=== PATIENT | female | born 1985 | race Caucasian/White ===

== ENCOUNTER → 2016-06-17 | Outpatient (CLI) | payer OTHER ==
--- NOTE | 2016-06-17 14:47 | US ---
EXAMINATION: Ultrasound guided right paracentesis. HISTORY: Ascites. FINDINGS/TECHNIQUE: The procedure, risks, and benefits were discussed with the patient. Written informed consent was obt ained. The right lower quadrant was sterilely prepped and draped. 1% lidocaine was administered for local anesthesia. Using ultrasound guidance a 5 Turkish one-step needle was advanced. The catheter wa s left in place. 2.2 L of straw-colored fluid was collected. The patient tolerated the procedure wel l. IMPRESSION: Successful US guided paracentesis.
== END | disposition home or self-care (01) ==
LOC: MW.US 12:53
PROVIDERS: ATTEND Internal Medicine Gastroenterology
DX: I89.8 Other specified noninfective disorders of lymphatic vessels and lymph nodes (principal); R18.8 Other ascites; R63.3 Feeding difficulties; D18.1 Lymphangioma, any site
CPT/HCPCS: 49083

== ENCOUNTER → 2016-06-17 | Outpatient (CLI) | payer OTHER ==
[2016-06-17 13:35] LABS: CHLORIDE,CL 106 mmol/L (98-110); SODIUM,NA 140 mmol/L (136-146)
== END ==
LOC: MW.LAB 12:28
PROVIDERS: ATTEND Internal Medicine
DX: R63.3 Feeding difficulties (principal); I89.8 Other specified noninfective disorders of lymphatic vessels and lymph nodes; D18.1 Lymphangioma, any site
CPT/HCPCS: 36415; 80053; 83735; 84100; 85025

== ENCOUNTER → 2016-06-25 | Outpatient (CLI) | payer OTHER ==
--- NOTE | 2016-06-25 13:27 | US ---
EXAMINATION: Ultrasound guided right paracentesis. HISTORY: Ascites. FINDINGS/TECHNIQUE: The procedure, risks, and benefits were discussed with the patient. Written informed consent was obt ained. The right lower quadrant was sterilely prepped and draped. 1% lidocaine was administered for local anesthesia. Using ultrasound guidance a 5 Estonian one-step needle was advanced. The catheter wa s left in place. 2.5 L of straw-colored fluid was collected. The patient tolerated the procedure wel l. IMPRESSION: Successful US guided paracentesis.
== END ==
LOC: MW.US 10:57
PROVIDERS: ATTEND Internal Medicine Gastroenterology
DX: I89.8 Other specified noninfective disorders of lymphatic vessels and lymph nodes (principal)
CPT/HCPCS: 49083

== ENCOUNTER → 2016-06-25 | Outpatient (CLI) | payer OTHER ==
[2016-06-25 11:57] LABS: CHLORIDE,CL 106 mmol/L (98-110); SODIUM,NA 137 mmol/L (136-146)
== END | disposition home or self-care (01) ==
LOC: MW.LAB 10:36
PROVIDERS: ATTEND Internal Medicine
DX: R63.3 Feeding difficulties (principal); I89.8 Other specified noninfective disorders of lymphatic vessels and lymph nodes
CPT/HCPCS: 36415; 49083; 80053; 82306; 82374; 82525; 83735; 83785; 84100; 84238; 84255; 84446; 84590; 84630; 85025

== ENCOUNTER → 2016-07-02 | Outpatient (CLI) | payer OTHER ==
--- NOTE | 2016-07-02 10:29 | US ---
EXAMINATION: Ultrasound guided right paracentesis. HISTORY: Ascites. FINDINGS/TECHNIQUE: The procedure, risks, and benefits were discussed with the patient. Written informed consent was obt ained. The right lower quadrant was sterilely prepped and draped. 1% lidocaine was administered for local anesthesia. Using ultrasound guidance a 5 Azeri one-step needle was advanced. The catheter wa s left in place. 1.7 L of straw-colored fluid was collected. The patient tolerated the procedure wel l. IMPRESSION: Successful US guided paracentesis.
== END | disposition home or self-care (01) ==
LOC: MW.US 09:39
PROVIDERS: ATTEND Internal Medicine Gastroenterology
DX: R18.8 Other ascites (principal); I89.8 Other specified noninfective disorders of lymphatic vessels and lymph nodes
CPT/HCPCS: 49083

== ENCOUNTER → 2016-07-04 | Outpatient (CLI) | payer OTHER ==
--- NOTE | 2016-07-04 15:19 | CR ---
EXAMINATION: Two-view chest (PA and Lateral views). HISTORY: Dyspnea. FINDINGS: The trachea is midline. The cardiomediastinal silhouette is within normal limits. No pulmonary infil trates, effusions or pneumothorax. There is a right-sided central line with tip in good position. Mi ld right costophrenic phrenic scarring. Opaque densities project over the upper abdomen secondary to previous lymphangiogram. Osseous structures appear unremarkable. IMPRESSION: No acute cardiopulmonary process.
== END | disposition home or self-care (01) ==
LOC: MW.CHFP 14:39
PROVIDERS: ATTEND Physician Assistant
DX: R06.00 Dyspnea, unspecified (principal)
CPT/HCPCS: 71020; 71020-26

== ENCOUNTER → 2016-07-08 | Outpatient (CLI) | payer OTHER ==
--- NOTE | 2016-07-09 20:34 | US ---
EXAMINATION: Ultrasound guided right paracentesis. HISTORY: Ascites. FINDINGS/TECHNIQUE: The procedure, risks, and benefits were discussed with the patient. Written informed consent was obt ained. The right lower quadrant was sterilely prepped and draped. 1% lidocaine was administered for local anesthesia. Using ultrasound guidance a 5 Latvian one-step needle was advanced. The catheter wa s left in place. 2.25 L straw-colored fluid was collected. The patient tolerated the procedure well. There is a trace residual ascites. IMPRESSION: Successful US guided paracentesis.
== END | disposition home or self-care (01) ==
LOC: MW.US 10:59
PROVIDERS: ATTEND Internal Medicine Gastroenterology
DX: R18.8 Other ascites (principal); D18.1 Lymphangioma, any site; I89.8 Other specified noninfective disorders of lymphatic vessels and lymph nodes
CPT/HCPCS: 36415; 49083; 80053; 83735; 84100; 84134; 85025; 86140

== ENCOUNTER → 2016-07-08 | Outpatient (CLI) | payer OTHER ==
[2016-07-08 11:50] LABS: CHLORIDE,CL 108 mmol/L (98-110); SODIUM,NA 138 mmol/L (136-146)
== END | disposition home or self-care (01) ==
LOC: MW.LAB 10:46
PROVIDERS: ATTEND Internal Medicine
DX: D18.1 Lymphangioma, any site (principal); R63.3 Feeding difficulties; I89.8 Other specified noninfective disorders of lymphatic vessels and lymph nodes
CPT/HCPCS: 36415; 80053; 83735; 84100; 84134; 85025; 86140

== ENCOUNTER → 2016-07-10 | Outpatient (CLI) | payer OTHER | LOC: MW.CHFP 09:22 | PROVIDERS: ATTEND Emergency Medicine | DX: R10.9 Unspecified abdominal pain (principal) | CPT/HCPCS: 81001; 87086 ==

== ENCOUNTER → 2016-07-15 | Outpatient (CLI) | payer OTHER ==
--- NOTE | 2016-07-15 14:26 | US ---
EXAMINATION: Ultrasound guided right paracentesis. HISTORY: Ascites. FINDINGS/TECHNIQUE: The procedure, risks, and benefits were discussed with the patient. Written informed consent was obt ained. The right lower quadrant was sterilely prepped and draped. 1% lidocaine was administered for local anesthesia. Using ultrasound guidance a 5 Tamazight one-step needle was advanced. The catheter wa s left in place. 3.05 L straw-colored fluid was collected. The patient tolerated the procedure well. There is a trace residual ascites. IMPRESSION: Successful US guided paracentesis.
== END | disposition home or self-care (01) ==
LOC: MW.US 13:12
PROVIDERS: ATTEND Internal Medicine Gastroenterology
DX: I89.8 Other specified noninfective disorders of lymphatic vessels and lymph nodes (principal)
CPT/HCPCS: 49083; 84157; 87070; 87205; 89050

== ENCOUNTER → 2016-07-22 | Outpatient (CLI) | payer OTHER ==
[2016-07-22 13:23] LABS: CHLORIDE,CL 107 mmol/L (98-110); SODIUM,NA 138 mmol/L (136-146)
--- NOTE | 2016-07-22 15:00 | US ---
EXAMINATION: Ultrasound guided left paracentesis. HISTORY: Ascites. FINDINGS/TECHNIQUE: The procedure, risks, and benefits were discussed with the patient. Written informed consent was obt ained. The left lower quadrant was sterilely prepped and draped. 1% lidocaine was administered for l ocal anesthesia. Using ultrasound guidance a 5 Chilean one-step needle was advanced. The catheter was left in place. 3.0 L straw-colored fluid was collected. The patient tolerated the procedure well. T here is a trace residual ascites. IMPRESSION: Successful US guided paracentesis.
== END ==
LOC: MW.LAB 12:44
PROVIDERS: ATTEND Internal Medicine
DX: R18.8 Other ascites (principal); I89.8 Other specified noninfective disorders of lymphatic vessels and lymph nodes
CPT/HCPCS: 36415; 49083; 80053; 83735; 84100; 85025

== ENCOUNTER → 2016-07-22 | Outpatient (CLI) | payer OTHER | LOC: MW.US 13:01 | PROVIDERS: ATTEND Internal Medicine Gastroenterology | DX: I89.8 Other specified noninfective disorders of lymphatic vessels and lymph nodes (principal) | CPT/HCPCS: C1729 ==

== ENCOUNTER → 2016-07-30 | Outpatient (CLI) | payer OTHER ==
--- NOTE | 2016-07-30 14:25 | US ---
EXAMINATION: Ultrasound guided paracentesis. HISTORY: Ascites. FINDINGS/TECHNIQUE: The procedure, risks, and benefits were discussed with the patient. Written informed consent was obt ained. The right lower quadrant was sterilely prepped and draped. 1% lidocaine was administered for local anesthesia. Using ultrasound guidance a 5 Congolese one-step needle was advanced. The catheter wa s left in place. 2.6 L of straw-colored fluid was collected. The patient tolerated the procedure wel l. IMPRESSION: Successful US guided paracentesis.
== END | disposition home or self-care (01) ==
LOC: MW.US 13:06
PROVIDERS: ATTEND Internal Medicine Gastroenterology
DX: I89.8 Other specified noninfective disorders of lymphatic vessels and lymph nodes (principal)
CPT/HCPCS: 49083; C1729

== ENCOUNTER → 2016-08-02 | Outpatient (CLI) | payer OTHER ==
[2016-08-02 11:50] LABS: CHLORIDE,CL 108 mmol/L (98-110); SODIUM,NA 138 mmol/L (136-146)
== END | disposition home or self-care (01) ==
LOC: MW.LAB 11:06
PROVIDERS: ATTEND Internal Medicine
DX: R63.3 Feeding difficulties (principal); I89.8 Other specified noninfective disorders of lymphatic vessels and lymph nodes; D18.1 Lymphangioma, any site
CPT/HCPCS: 36415; 80053; 83735; 84100; 85025

== ENCOUNTER → 2016-08-05 | Outpatient (CLI) | payer OTHER | LOC: MW.US 13:11 | PROVIDERS: ATTEND Internal Medicine Gastroenterology | DX: I89.8 Other specified noninfective disorders of lymphatic vessels and lymph nodes (principal); R18.8 Other ascites ==

== ENCOUNTER → 2016-08-09 | Outpatient (CLI) | payer OTHER ==
--- NOTE | 2016-08-09 16:29 | US ---
EXAMINATION: Ultrasound guided paracentesis. HISTORY: Ascites. FINDINGS/TECHNIQUE: The procedure, risks, and benefits were discussed with the patient. Written informed consent was obt ained. The right lower quadrant was sterilely prepped and draped. 1% lidocaine was administered for local anesthesia. Using ultrasound guidance a 5 Ivorian one-step needle was advanced. The catheter wa s left in place. 2.5 L of straw-colored fluid was collected. The patient tolerated the procedure wel l. IMPRESSION: Successful US guided paracentesis.
== END ==
LOC: MW.US 15:03
PROVIDERS: ATTEND Internal Medicine Gastroenterology
DX: R18.8 Other ascites (principal); I89.8 Other specified noninfective disorders of lymphatic vessels and lymph nodes
CPT/HCPCS: 49083

== ENCOUNTER → 2016-08-19 | Outpatient (CLI) | payer OTHER ==
--- NOTE | 2016-08-19 14:34 | US ---
EXAMINATION: Ultrasound guided paracentesis. HISTORY: Ascites. FINDINGS/TECHNIQUE: The procedure, risks, and benefits were discussed with the patient. Written informed consent was obt ained. The right lower quadrant was sterilely prepped and draped. 1% lidocaine was administered for local anesthesia. Using ultrasound guidance a 5 Japanese one-step needle was advanced. The catheter wa s left in place. 2.3 L of tea-colored fluid was collected. The patient tolerated the procedure well. IMPRESSION: Successful US guided paracentesis.
== END ==
LOC: MW.US 13:07
PROVIDERS: ATTEND Internal Medicine Gastroenterology
DX: I89.8 Other specified noninfective disorders of lymphatic vessels and lymph nodes (principal); R06.00 Dyspnea, unspecified
CPT/HCPCS: 49083; C1729

== ENCOUNTER → 2016-08-19 | Outpatient (CLI) | payer OTHER ==
--- NOTE | 2016-08-19 14:34 | CR ---
EXAMINATION: Two-view chest (PA and Lateral views). HISTORY: Dyspnea. FINDINGS: The trachea is midline. The cardiomediastinal silhouette is within normal limits. No pulmonary infil trates, effusions or pneumothorax. There is a right-sided central line with tip in good position. Mi ld right costophrenic scarring. Opaque densities project over the upper abdomen secondary to previou s lymphangiogram. Osseous structures appear unremarkable. IMPRESSION: No acute cardiopulmonary process.
== END ==
LOC: MW.CHFP 13:09
PROVIDERS: ATTEND Emergency Medicine
DX: R06.00 Dyspnea, unspecified (principal)
CPT/HCPCS: 71020; 71020-26

== ENCOUNTER → 2016-08-23 | Outpatient (CLI) | payer OTHER ==
[~2016-08-23] MED LIST: Albuterol 0.083% 2.5 MG/3 ML Neb Soln NEB ONE; Albuterol 0.083% 2.5 MG/3 ML Neb Soln ONE
== END ==
LOC: MW.RT 13:41
PROVIDERS: ATTEND Emergency Medicine
DX: I89.8 Other specified noninfective disorders of lymphatic vessels and lymph nodes (principal)
CPT/HCPCS: 94060

== ENCOUNTER → 2016-08-27 | Outpatient (CLI) | payer OTHER ==
[2016-08-27 16:37] LABS: CHLORIDE,CL 110 mmol/L (98-110); SODIUM,NA 141 mmol/L (136-146)
== END | disposition home or self-care (01) ==
LOC: MW.LAB 15:55
PROVIDERS: ATTEND Internal Medicine
DX: R63.3 Feeding difficulties (principal); I89.8 Other specified noninfective disorders of lymphatic vessels and lymph nodes; D18.1 Lymphangioma, any site
CPT/HCPCS: 36415; 80053; 83735; 84100; 84478; 85025

== ENCOUNTER → 2016-08-28 | Outpatient (CLI) | payer OTHER | LOC: MW.US 11:01 | PROVIDERS: ATTEND Internal Medicine Gastroenterology | DX: I89.8 Other specified noninfective disorders of lymphatic vessels and lymph nodes (principal); Z53.9 Procedure and treatment not carried out, unspecified reason ==

== ENCOUNTER → 2016-09-02 | Outpatient (CLI) | payer OTHER | LOC: MW.US 13:09 | PROVIDERS: ATTEND Internal Medicine Gastroenterology | DX: I89.8 Other specified noninfective disorders of lymphatic vessels and lymph nodes (principal); Z53.9 Procedure and treatment not carried out, unspecified reason ==

== ENCOUNTER → 2016-09-06 | Outpatient (CLI) | payer OTHER ==
--- NOTE | 2016-09-06 13:49 | US ---
EXAMINATION: Ultrasound guided paracentesis. HISTORY: Ascites. FINDINGS/TECHNIQUE: The procedure, risks, and benefits were discussed with the patient. Written informed consent was obt ained. The right lower quadrant was sterilely prepped and draped. 1% lidocaine was administered for local anesthesia. Using ultrasound guidance a 5 Belarusian one-step needle was advanced. The catheter wa s left in place. 1.9 L of cloudy yellow fluid was collected. The patient tolerated the procedure wel l. IMPRESSION: Successful US guided paracentesis.
== END ==
LOC: MW.US 13:00
PROVIDERS: ATTEND Internal Medicine Gastroenterology
DX: R18.8 Other ascites (principal); I89.8 Other specified noninfective disorders of lymphatic vessels and lymph nodes
CPT/HCPCS: 49083

== ENCOUNTER 2017-06-11 17:16 | Observation (INO) | payer OTHER ==
[2017-06-11] MEDS ORDERED: Magnesium Sulfate/Water 2 GM in Premix Bag 1 BAG IV ONE (17:47)
[2017-06-11] MEDS ORDERED: Diltiazem 25 MG/5 ML SDV IVPUSH ONE (17:47)
[2017-06-11] MEDS ORDERED: Sodium Chloride 0.9% 1,000 ML IV ONE (17:47)
[2017-06-11] MEDS ORDERED: Sodium Chloride 0.9% 10 ML Syringe FLUSH PRN (19:20)
[2017-06-11] MEDS ORDERED: Sodium Chloride 0.9% 2.5 ML Syringe FLUSH PRN (19:20)
[2017-06-11] MEDS ORDERED: Ondansetron 4 MG/2 ML SDV IVPUSH PRN (19:20)
[2017-06-11] MEDS ORDERED: Diltiazem 25 MG/5 ML SDV IVPUSH PRN (19:26)
--- NOTE | 2017-06-11 20:10 | PCM.HP ---
H&P History of Present Illness - General Date of Service: 06/11/17 Admit Problem/Dx: Admission Diagnosis/Problem Admission Diagnosis/Problem Atrial fibrillation with rapid ventricular response - History of Present Illness Initial Comments - Free Text/Narative: This is a 31-year-old female who is presenting after being seen at the residency clinic here in [facility]. Patient is being admitted directly for new onset atrial fibrillation RVR. 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 Patient states that she woke up this morning feeling dizzy, having heart palpitations and feeling fatigued, patient thought that she was dehydrated as she has been urinating almost every hour overnight. Patient made appointment with her family physician and when seen it was determined that patient was having atrial fibrillation of new onset RVR. Patient had a chest x-ray, CBC, CMP, magnesium all of which appeared to be within normal limits. Magnesium was 1.5 and the patient did receive 2 g of mag. Onset of Symptoms: Reports: Today - Related Data Allergies/Adverse Reactions: Allergies Allergy/AdvReac Type Severity Reaction Status Date / Time Iodinated Contrast- Oral and Allergy Rash Verified 03/29/16 11:54 IV Dye [Iodinated Contrast Media - IV Dye] iron Allergy Anaphylactic Verified 03/29/16 11:54 Shock Home Medications: Home Meds Albuterol [Ventolin HFA] 1 - 2 puff IH Q4H PRN 06/11/17 [History] Amoxicillin 2,000 mg PO .BEFORE DENTAL APPT PRN 06/11/17 [History] Ascorbic Acid [Vitamin C] 500 mg PO DAILY 06/11/17 [History] Aspirin [Halfprin] 81 mg PO DAILY 06/11/17 [History] Bifidobacterium Infantis [Align] 4 mg PO DAILY 06/11/17 [History] ClonazePAM [KlonoPIN] 0.5 mg PO BID PRN 06/11/17 [History] Clotrimazole [Mycelex] 10 mg PO . 5 TIMES DAILY 06/11/17 [History] Cyanocobalamin (Vitamin B-12) [Vitamin B-12] 1,000 mg IM Q30D 06/11/17 [History] Cyproheptadine HCl 06/11/17 [History] Ergocalciferol (Vitamin D2) [Vitamin D2] 50,000 unit PO WEEKLY 06/11/17 [History ] Ferumoxytol [Feraheme] 510 mg IV ASDIRECTED 06/11/17 [History] Levomefolate Calcium [l-Methylfolate Calcium] 7.5 mg PO DAILY 06/11/17 [History] Levomefolate/Algal Oil [Deplin-Algal Oil 7.5 mg Cap] 1 cap PO DAILY 06/11/17 [ History] Lidocaine 5% 1 applic TOP ASDIRECTED PRN 06/11/17 [History] Loperamide [Imodium] 2 mg PO DAILY 06/11/17 [History] Melatonin 5 mg PO BEDTIME 06/11/17 [History] Metoprolol Succinate [Toprol XL] 12.5 mg PO DAILY 06/11/17 [History] Mirtazapine [Remeron] 30 mg PO BEDTIME 06/11/17 [History] Mycophenolate Mofetil [Cellcept] 500 mg PO BID 06/11/17 [History] Non-Formulary Medication [NF Drug] 1,600 ml IV DAILY@199906/11/17 [History] Omeprazole 40 mg PO DAILY 06/11/17 [History] Ondansetron [Zofran Odt] 8 mg PO TID PRN 06/11/17 [History] Promethazine [Phenergan] 10 - 15 ml PO Q4H PRN 06/11/17 [History] busPIRone [Buspar] 5 mg PO QAM 06/11/17 [History] busPIRone [Buspar] 10 mg PO BEDTIME 06/11/17 [History] clonazePAM [Klonopin] 1 mg PO BEDTIME 06/11/17 [History] predniSONE 4 mg PO DAILY 06/11/17 [History] valACYclovir HCl [Valacyclovir] 1,000 mg PO BID PRN 06/11/17 [History] Past Medical History HEENT History: Reports: Impaired Vision Other HEENT History: Wears contact lenses Cardiovascular History: Reports: None Respiratory History: Reports: Other (See Below) Other Respiratory History: Pleural effusion, Chylothorax Gastrointestinal History: Reports: Inflammatory Bowel Disease, Other (See Below) Other Gastrointestinal History: Chrohn's Disease Genitourinary History: Reports: None DRAWING TENDER History: Reports: None Musculoskeletal History: Reports: Other (See Below) Other Musculoskeletal History: Low back pain Neurological History: Reports: None Psychiatric History: Reports: Anxiety, Depression Endocrine/Metabolic History: Reports: None Hematologic History: Reports: None Immunologic History: Reports: None Oncologic (Cancer) History: Reports: None Dermatologic History: Reports: None - Infectious Disease History Infectious Disease History: Reports: Shingles - Past Surgical History HEENT Surgical History: Reports: None Cardiovascular Surgical History: Reports: None Respiratory Surgical History: Reports: Thoracentesis, Other (See Below) Female Surgical History: Reports: None Dermatological Surgical History: Reports: None Social & Family History - Family History Family Medical History: Noncontributory - Tobacco Use Smoking Status *Q: Never Smoker Second Hand Smoke Exposure: No - Caffeine Use Caffeine Use: Reports: None - Recreational Drug Use Recreational Drug Use: No H&P Review of Systems - Review of Systems: Review Of Systems: ROS reveals no pertinent complaints other than HPI. Exam - Exam Exam: See Below - Vital Signs Vital Signs: Last Vital Signs Temp 36.4 C 06/11/17 17:25 Pulse Resp 22 H 06/11/17 19:00 BP 109/77 06/11/17 19:00 Pulse Ox 96 06/11/17 19:00 Weight: 58.1 kg - Exam General: Alert, Oriented, Cooperative HEENT: Conjunctiva Clear Neck: Supple, Trachea Midline Lungs: Clear to Auscultation, Normal Respiratory Effort Cardiovascular: Irregular Rhythm, Tachycardia GI/Abdominal Exam: Normal Bowel Sounds Extremities: Normal Inspection, No Pedal Edema *Q Meaningful Use (ADM) - VTE *Q VTE Criteria *Q: - Stroke *Q Stroke Criteria *Q: - AMI *Q AMI Criteria *Q: - Problem List (1) Atrial fibrillation with RVR SNOMED Code(s): 893724489175469 ICD Code: I48.91 - UNSPECIFIED ATRIAL FIBRILLATION Status: Acute Current Visit: Yes Problem List Initiated/Reviewed/Updated: Yes Orders Last 24hrs: Active Orders 24 hr Category Date Time Status Patient Status [ADT] Routine ADT 06/11/17 19:20 Active Antiembolic Devices [RC] PER UNIT ROUTINE Care 06/11/17 19:23 Active Blood Glucose Check, Bedside [RC] PRN Care 06/11/17 19:24 Active Blood Glucose Check, Bedside [RC] Q4HR Care 06/11/17 19:32 Active Cardiac Monitoring [RC] CONTINUOUS Care 06/11/17 19:22 Active Height and Weight [RC] UPON Care 06/11/17 19:20 Active Intake and Output [RC] QSHIFT Care 06/11/17 19:22 Active Notify Provider Vital Signs [RC] ASDIRECTED Care 06/11/17 19:22 Active Oxygen Therapy [RC] PRN Care 06/11/17 19:20 Active Pulse Oximetry [RC] CONTINUOUS Care 06/11/17 19:22 Active Up With Assistance [RC] ASDIRECTED Care 06/11/17 19:20 Active VTE/DVT Education [RC] PER UNIT ROUTINE Care 06/11/17 19:20 Active Vital Signs [RC] Q4H Care 06/11/17 19:20 Active Regular Diet [DIET] Diet 06/11/17 Breakfast Active Echo 2D wo Cont [US] Routine Exams 06/11/17 19:33 Ordered CBC WITH AUTO DIFF [HEME] AM Lab 06/12/17 05:11 Ordered COMPREHENSIVE METABOLIC PN,CMP [CHEM] AM Lab 06/12/17 05:11 Ordered MAGNESIUM [CHEM] AM Lab 06/12/17 05:11 Ordered UA W/MICROSCOPIC [URIN] Routine Lab 06/11/17 19:44 Ordered Diltiazem Med 06/11/17 19:26 Active 20 mg IVPUSH Q3HR PRN Metoprolol Tartrate [Lopressor] Med 06/11/17 21:00 Active 25 mg PO Q12HR Ondansetron [Zofran] Med 06/11/17 19:20 Active 4 mg IVPUSH Q4H PRN Patient's Own Medication [Ptom] Med 06/11/17 20:00 Active 1 each IVPUSH DAILY@1999 Sodium Chloride 0.9% [Saline Flush] Med 06/11/17 19:20 Active 10 ml FLUSH ASDIRECTED PRN Sodium Chloride 0.9% [Saline Flush] Med 06/11/17 19:20 Active 2.5 ml FLUSH ASDIRECTED PRN Peripheral IV Insertion Adult [OM.PC] Routine Oth 06/11/17 19:20 Ordered Saline Lock Insert [OM.PC] Routine Oth 06/11/17 19:20 Ordered Sequential Compression Device [OM.PC] Per Unit Routine Oth 06/11/17 19:23 Ordered Resuscitation Status Routine Resus Stat 06/11/17 19:20 Ordered Medication Orders Diltiazem HCl (Diltiazem) 20 mg IVPUSH Q3HR PRN PRN Reason: Tachycardia Metoprolol Tartrate (Lopressor) 25 mg PO Q12HR DEREK Ondansetron HCl (Zofran) 4 mg IVPUSH Q4H PRN PRN Reason: Nausea Tpn Per Patient 1 each IVPUSH DAILY@1999 DEREK Sodium Chloride (Saline Flush) 10 ml FLUSH ASDIRECTED PRN PRN Reason: Keep Vein Open Sodium Chloride (Saline Flush) 2.5 ml FLUSH ASDIRECTED PRN PRN Reason: Keep Vein Open Assessment/Plan Comment:: This is a 31-year-old female with a significant past medical history presenting with new onset atrial fibrillation with RVR. Assessment/plan: 1. New onset atrial fibrillation with RVR -Patient may be dehydrated as such the patient is being given IV fluid bolus and we shall see if this helps control her heart rate below 110 bpm. Heart rate is not below 110 then we can give Cardizem 10 mg every 3 hours with a heart rate above 110. -Patient will also be getting Lopressor 25 mg every 12 hours for heart rate control. -Patient to get an echocardiogram to assess for possible cardiac abnormalities that may be attributed to atrial fibrillation -Patient is young and as this is new onset less than 48 hours with holding off on anticoagulation therapy despite the previous past medical history of vasculitis induced stroke. We will reconsider anticoagulated therapy Patient admitted under observation ICU.
[2017-06-11] MEDS: [UNRECOGNIZED DRUG - NUTRITION] IVPUSH SCH (21:00)
[2017-06-11] MEDS: Metoprolol Tartrate 25 MG Tab PO SCH (22:02)
[2017-06-11] MEDS ORDERED: ClonazePAM 0.5 MG Tab PO PRN (22:13)
[2017-06-11] MEDS ORDERED: Ondansetron 8 MG Tab.DIS PO PRN (22:13)
[2017-06-11] MEDS ORDERED: ERGOCALCIFEROL 50000 UNIT PO SCH (22:15)
[2017-06-11] MEDS ORDERED: FERUMOXYTOL 510 MG/17 ML IV SCH (22:15)
[2017-06-11] MEDS ORDERED: Cyanocobalamin (Vitamin B12) 1,000 MCG/ML SDV IM SCH (22:30)
[2017-06-11] MEDS ORDERED: ClonazePAM 1 MG Tab ONE (22:38)
[2017-06-11] MEDS ORDERED: Cyanocobalamin (Vitamin B12) 500 MCG Tab ONE (22:48)
[2017-06-11] MEDS ORDERED: Mirtazapine 15 MG Tab.DIS ONE (22:48)
[2017-06-11] MEDS: MELATONIN 5 MG PO SCH (22:50)
[2017-06-11] MEDS ORDERED: Mycophenolate Mofetil 250 MG Cap ONE (22:54)
[2017-06-11] MEDS: Mycophenolate Mofetil 250 MG Cap PO SCH (22:54)
[2017-06-11] MEDS: Clotrimazole 10 MG Troche PO SCH (23:45)
[2017-06-12] MEDS ORDERED: busPIRone 5 MG Tab ONE (00:20)
[2017-06-12] MEDS ORDERED: busPIRone 5 MG Tab PO ONE ×2 (00:20→21:00)
[2017-06-12] MEDS: Clotrimazole 10 MG Troche PO SCH ×4 (00:21→11:32)
[2017-06-12] MEDS: Mirtazapine 15 MG Tab PO SCH ×2 (00:23→20:23)
[2017-06-12] MEDS: busPIRone 5 MG Tab PO SCH ×3 (00:23→20:23)
[2017-06-12 06:01] LABS: CHLORIDE,CL 111 mmol/L (98-110); SODIUM,NA 139 mmol/L (136-146)
[2017-06-12] MEDS: Omeprazole 20 MG Cap.CR PO SCH (08:19)
[2017-06-12] MEDS: Metoprolol Tartrate 25 MG Tab PO SCH (08:19)
[2017-06-12] MEDS: Mycophenolate Mofetil 250 MG Cap PO SCH ×2 (08:20→20:23)
[2017-06-12] MEDS: predniSONE 1 MG Tab PO SCH (08:38)
[2017-06-12] MEDS: ALIGN 4 MG PO SCH (08:50)
[2017-06-12] MEDS: LEVOMEFOLATE CALCIUM 7.5 MG PO SCH (08:50)
[2017-06-12] MEDS ORDERED: valACYclovir 500 MG Tab PO PRN (09:00)
[2017-06-12] MEDS ORDERED: LEVOMEFOLATE PO SCH (09:00)
[2017-06-12] MEDS ORDERED: LEVOMEFOLATE CALCIUM 7.5 MG PO SCH (09:00)
[2017-06-12] MEDS ORDERED: [UNRECOGNIZED DRUG - OTHER] PO SCH (09:00)
[2017-06-12] MEDS ORDERED: ALGAL OIL PO SCH (09:00)
[2017-06-12] MEDS ORDERED: BIFIDOBACTERIUM INFANTIS 4 MG PO SCH (09:00)
[2017-06-12] MEDS ORDERED: Metoprolol Tartrate 25 MG Tab PO ONE (09:50)
[2017-06-12] MEDS: ClonazePAM 0.5 MG Tab PO SCH (10:01)
[2017-06-12] MEDS: Aspirin 81 MG Tab.EC PO SCH (10:01)
--- NOTE | 2017-06-12 16:14 | PCM.DCSUM1 ---
Discharge Summary - Hospital Course HPI Initial Comments: Discharge Summary Date of admission: 06/11/2017 Date of discharge: 06/12/2017 Admitting diagnosis: #1. New onset atrial fibrillation with RVR #2. Dizziness, fatigue, dehydration secondary most likely to #1 #3. 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 #5. Discharge diagnoses: #1. New onset atrial fibrillation with RVR controlled #2. Past medical history of ANIMAL ATTENDANT vasculitis, stroke secondary to ANIMAL ATTENDANT vasculitis, chronic TPN use it secondary to eating disorder. #3. #4. #5. Consultations: None Procedures: None Hospitalization course: Disposition on discharge: Condition on discharge: Discharge medications: Follow-up instructions: - Discharge Data Discharge Date: 06/12/17 Discharge Disposition: Home, Self-Care 01 Condition: Good - Discharge Diagnosis/Problem(s) (1) Atrial fibrillation with RVR SNOMED Code(s): 213690114223031 ICD Code: I48.91 - UNSPECIFIED ATRIAL FIBRILLATION Status: Acute Current Visit: Yes - Patient Summary/Data Consults: Consultations 06/12/17 13:58 Consult to Physician [CONS] Routine - Discharge Plan Home Medications: Home Meds Albuterol [Ventolin HFA] 1 - 2 puff IH Q4H PRN 06/11/17 [History] Amoxicillin 2,000 mg PO .BEFORE DENTAL APPT PRN 06/11/17 [History] Ascorbic Acid [Vitamin C] 500 mg PO DAILY 06/11/17 [History] Aspirin [Halfprin] 81 mg PO DAILY 06/11/17 [History] Bifidobacterium Infantis [Align] 4 mg PO DAILY 06/11/17 [History] ClonazePAM [KlonoPIN] 0.5 mg PO BID PRN 06/11/17 [History] Clotrimazole [Mycelex] 10 mg PO . 5 TIMES DAILY 06/11/17 [History] Cyanocobalamin (Vitamin B-12) [Vitamin B-12] 1,000 mg IM Q30D 06/11/17 [History] Cyproheptadine HCl 06/11/17 [History] Ergocalciferol (Vitamin D2) [Vitamin D2] 50,000 unit PO WEEKLY 06/11/17 [History ] Ferumoxytol [Feraheme] 510 mg IV ASDIRECTED 06/11/17 [History] Levomefolate Calcium [l-Methylfolate Calcium] 7.5 mg PO DAILY 06/11/17 [History] Levomefolate/Algal Oil [Deplin-Algal Oil 7.5 mg Cap] 1 cap PO DAILY 06/11/17 [ History] Lidocaine 5% 1 applic TOP ASDIRECTED PRN 06/11/17 [History] Loperamide [Imodium] 2 mg PO DAILY 06/11/17 [History] Melatonin 5 mg PO BEDTIME 06/11/17 [History] Metoprolol Succinate [Toprol XL] 12.5 mg PO DAILY 06/11/17 [History] Mirtazapine [Remeron] 30 mg PO BEDTIME 06/11/17 [History] Mycophenolate Mofetil [Cellcept] 500 mg PO BID 06/11/17 [History] Non-Formulary Medication [NF Drug] 1,600 ml IV DAILY@199906/11/17 [History] Omeprazole 40 mg PO DAILY 06/11/17 [History] Ondansetron [Zofran Odt] 8 mg PO TID PRN 06/11/17 [History] Promethazine [Phenergan] 10 - 15 ml PO Q4H PRN 06/11/17 [History] busPIRone [Buspar] 5 mg PO QAM 06/11/17 [History] busPIRone [Buspar] 10 mg PO BEDTIME 06/11/17 [History] clonazePAM [Klonopin] 0.5 mg PO BEDTIME 06/11/17 [History] predniSONE 4 mg PO DAILY 06/11/17 [History] valACYclovir HCl [Valacyclovir] 1,000 mg PO BID PRN 06/11/17 [History] ClonazePAM [KlonoPIN] 0.25 mg PO DAILY 06/12/17 [History] - Patient Data Vitals - Most Recent: Last Vital Signs Temp 36.9 C 06/12/17 15:00 Pulse 104 H 06/12/17 10:01 Resp 20 06/12/17 15:00 BP 128/87 06/12/17 15:00 Pulse Ox 94 L 06/12/17 15:00 Weight - Most Recent: 58.3 kg I&O - Last 24 hours: Intake & Output 06/12/17 06/12/17 06/12/17 06:59 14:59 22:59 Intake Total 1700 Output Total 2500 Balance -800 Lab Results - Last 24 hrs: Laboratory Results - last 24 hr 06/11/17 06/11/17 06/11/17 Range/Units 19:45 19:59 23:06 WBC (4.0-11.0) K/uL RBC (4.30-5.90) M/uL Hgb (12.0-16.0) g/dL Hct (36.0-46.0) % MCV (80.0-98.0) fL MCH (27.0-32.0) pg MCHC (31.0-37.0) g/dL RDW Std Deviation (28.0-62.0) fl RDW Coeff of Bailee (11.0-15.0) % Plt Count (150-400) K/uL MPV (7.40-12.00) fL Neut % (Auto) (48.0-80.0) % Lymph % (Auto) (16.0-40.0) % [place] % (Auto) (0.0-15.0) % Eos % (Auto) (0.0-7.0) % Baso % (Auto) (0.0-1.5) % Neut # (Auto) (1.4-5.7) K/uL Lymph # (Auto) (0.6-2.4) K/uL [place] # (Auto) (0.0-0.8) K/uL Eos # (Auto) (0.0-0.7) K/uL Baso # (Auto) (0.0-0.1) K/uL Nucleated RBC % /100WBC Nucleated RBCs # K/uL Sodium (136-146) mmol/L Potassium (3.5-5.1) mmol/L Chloride (98-110) mmol/L Carbon Dioxide (21-31) mmol/L BUN (6.0-23.0) mg/dL Creatinine (0.6-1.5) mg/dL Est Cr Clr Drug Dosing mL/min Estimated GFR (MDRD) ml/min Glucose (60-110) mg/dL POC Glucose 84 114 H (60-110) mg/dL Calcium (8.8-10.8) mg/dL Magnesium (1.5-2.3) mEq/L Total Bilirubin (0.1-1.5) mg/dL AST (5-40) IU/L ALT (8-54) IU/L Alkaline Phosphatase (40-150) Total Protein (6.0-8.0) g/dL Albumin (3.5-5.0) g/dL Globulin (2.0-3.5) g/dL Albumin/Globulin Ratio (1.3-2.8) Urine Color YELLOW Urine Appearance CLEAR Urine pH 6.0 (5.0-8.0) Ur Specific [place] 1.010 (1.001-1.035) Urine Protein NEGATIVE (NEGATIVE) mg/dL Urine Glucose (UA) NEGATIVE (NEGATIVE) mg/dL Urine Ketones NEGATIVE (NEGATIVE) mg/dL Urine Occult Blood NEGATIVE (NEGATIVE) Urine Nitrite NEGATIVE (NEGATIVE) Urine Bilirubin NEGATIVE (NEGATIVE) Urine Urobilinogen 0.2 (<2.0) EU/dL Ur Leukocyte Esterase NEGATIVE (NEGATIVE) Urine RBC 0-1 (0-2/HPF) Urine WBC 0-1 (0-5/HPF) Ur Epithelial Cells OCCASIONAL (NONE-FEW) Urine Bacteria RARE (NEGATIVE) 06/12/17 06/12/17 06/12/17 Range/Units 04:30 05:31 05:31 WBC 4.74 (4.0-11.0) K/uL RBC 5.33 (4.30-5.90) M/uL Hgb 15.7 (12.0-16.0) g/dL Hct 48.2 H (36.0-46.0) % MCV 90.4 (80.0-98.0) fL MCH 29.5 (27.0-32.0) pg MCHC 32.6 (31.0-37.0) g/dL RDW Std Deviation 50.5 (28.0-62.0) fl RDW Coeff of Bailee 16 H (11.0-15.0) % Plt Count 260 (150-400) K/uL MPV 10.00 (7.40-12.00) fL Neut % (Auto) 67.8 (48.0-80.0) % Lymph % (Auto) 17.5 (16.0-40.0) % [place] % (Auto) 12.0 (0.0-15.0) % Eos % (Auto) 2.3 (0.0-7.0) % Baso % (Auto) 0.4 (0.0-1.5) % Neut # (Auto) 3.2 (1.4-5.7) K/uL Lymph # (Auto) 0.8 (0.6-2.4) K/uL [place] # (Auto) 0.6 (0.0-0.8) K/uL Eos # (Auto) 0.1 (0.0-0.7) K/uL Baso # (Auto) 0.0 (0.0-0.1) K/uL Nucleated RBC % 0.0 /100WBC Nucleated RBCs # 0 K/uL Sodium 139 (136-146) mmol/L Potassium 4.2 (3.5-5.1) mmol/L Chloride 111 H (98-110) mmol/L Carbon Dioxide 21 (21-31) mmol/L BUN 13 (6.0-23.0) mg/dL Creatinine 0.6 (0.6-1.5) mg/dL Est Cr Clr Drug Dosing 123.89 mL/min Estimated GFR (MDRD) > 60.0 ml/min Glucose 112 H (60-110) mg/dL POC Glucose 102 (60-110) mg/dL Calcium 8.0 L (8.8-10.8) mg/dL Magnesium 1.7 (1.5-2.3) mEq/L Total Bilirubin 0.5 (0.1-1.5) mg/dL AST 12 (5-40) IU/L ALT 14 (8-54) IU/L Alkaline Phosphatase 54 (40-150) Total Protein 4.2 L (6.0-8.0) g/dL Albumin 2.9 L (3.5-5.0) g/dL Globulin 1.3 L (2.0-3.5) g/dL Albumin/Globulin Ratio 2.2 (1.3-2.8) Urine Color Urine Appearance Urine pH (5.0-8.0) Ur Specific [place] (1.001-1.035) Urine Protein (NEGATIVE) mg/dL Urine Glucose (UA) (NEGATIVE) mg/dL Urine Ketones (NEGATIVE) mg/dL Urine Occult Blood (NEGATIVE) Urine Nitrite (NEGATIVE) Urine Bilirubin (NEGATIVE) Urine Urobilinogen (<2.0) EU/dL Ur Leukocyte Esterase (NEGATIVE) Urine RBC (0-2/HPF) Urine WBC (0-5/HPF) Ur Epithelial Cells (NONE-FEW) Urine Bacteria (NEGATIVE) 06/12/17 Range/Units 08:28 WBC (4.0-11.0) K/uL RBC (4.30-5.90) M/uL Hgb (12.0-16.0) g/dL Hct (36.0-46.0) % MCV (80.0-98.0) fL MCH (27.0-32.0) pg MCHC (31.0-37.0) g/dL RDW Std Deviation (28.0-62.0) fl RDW Coeff of Bailee (11.0-15.0) % Plt Count (150-400) K/uL MPV (7.40-12.00) fL Neut % (Auto) (48.0-80.0) % Lymph % (Auto) (16.0-40.0) % [place] % (Auto) (0.0-15.0) % Eos % (Auto) (0.0-7.0) % Baso % (Auto) (0.0-1.5) % Neut # (Auto) (1.4-5.7) K/uL Lymph # (Auto) (0.6-2.4) K/uL [place] # (Auto) (0.0-0.8) K/uL Eos # (Auto) (0.0-0.7) K/uL Baso # (Auto) (0.0-0.1) K/uL Nucleated RBC % /100WBC Nucleated RBCs # K/uL Sodium (136-146) mmol/L Potassium (3.5-5.1) mmol/L Chloride (98-110) mmol/L Carbon Dioxide (21-31) mmol/L BUN (6.0-23.0) mg/dL Creatinine (0.6-1.5) mg/dL Est Cr Clr Drug Dosing mL/min Estimated GFR (MDRD) ml/min Glucose (60-110) mg/dL POC Glucose 86 (60-110) mg/dL Calcium (8.8-10.8) mg/dL Magnesium (1.5-2.3) mEq/L Total Bilirubin (0.1-1.5) mg/dL AST (5-40) IU/L ALT (8-54) IU/L Alkaline Phosphatase (40-150) Total Protein (6.0-8.0) g/dL Albumin (3.5-5.0) g/dL Globulin (2.0-3.5) g/dL Albumin/Globulin Ratio (1.3-2.8) Urine Color Urine Appearance Urine pH (5.0-8.0) Ur Specific [place] (1.001-1.035) Urine Protein (NEGATIVE) mg/dL Urine Glucose (UA) (NEGATIVE) mg/dL Urine Ketones (NEGATIVE) mg/dL Urine Occult Blood (NEGATIVE) Urine Nitrite (NEGATIVE) Urine Bilirubin (NEGATIVE) Urine Urobilinogen (<2.0) EU/dL Ur Leukocyte Esterase (NEGATIVE) Urine RBC (0-2/HPF) Urine WBC (0-5/HPF) Ur Epithelial Cells (NONE-FEW) Urine Bacteria (NEGATIVE) Med Orders - Current: Current Medications Aspirin (Halfprin) 81 mg PO DAILY [facility] Last Admin: 06/12/17 10:01 Dose: 81 mg Buspirone HCl (Buspar) 10 mg PO BEDTIME [facility] Last Admin: 06/12/17 00:23 Dose: 10 mg Buspirone HCl (Buspar) 5 mg PO DAILY [facility] Last Admin: 06/12/17 08:20 Dose: 5 mg Clonazepam (Klonopin) 0.5 mg PO BID PRN PRN Reason: Anxiety Clonazepam (Klonopin) 0.5 mg PO BEDTIME [facility] Clonazepam (Klonopin) 0.25 mg PO DAILY [facility] Last Admin: 06/12/17 10:01 Dose: 0.25 mg Cyanocobalamin (Vitamin B12) 1,000 mcg IM Q30D [facility] Last Admin: 06/11/17 23:18 Dose: Not Given Diltiazem HCl (Diltiazem) 20 mg IVPUSH Q3HR PRN PRN Reason: Tachycardia Metoprolol Tartrate (Lopressor) 50 mg PO Q12HR [facility] Mirtazapine (Remeron) 30 mg PO BEDTIME [facility] Last Admin: 06/12/17 00:23 Dose: 30 mg Mycophenolate Mofetil (Cellcept) 500 mg PO BID [facility] Last Admin: 06/12/17 08:20 Dose: 500 mg Non-Formulary Medication (Ergocalciferol (Vitamin D2)) 50,000 unit PO Q7D [facility] Last Admin: 06/11/17 22:43 Dose: Not Given Omeprazole (Omeprazole) 40 mg PO ACBREAKFAST [facility] Last Admin: 06/12/17 08:19 Dose: 40 mg Ondansetron HCl (Zofran) 4 mg IVPUSH Q4H PRN PRN Reason: Nausea Ondansetron HCl (Zofran Odt) 8 mg PO TID PRN PRN Reason: Nausea Tpn Per Patient 1 each IVPUSH DAILY@1999 [facility] Last Admin: 06/11/17 21:00 Dose: 1 each Melatonin 5 Mg 1 each PO BEDTIME [facility] Last Admin: 06/11/17 22:50 Dose: 1 each (Levomefolate Calcium [L- Methylfolate Calcium ] 7.5 Mg) 1 each PO DAILY [facility] Last Admin: 06/12/17 08:50 Dose: 1 each Align 4 Mg 1 each PO DAILY [facility] Last Admin: 06/12/17 08:50 Dose: 1 each Prednisone (Prednisone) 4 mg PO DAILY [facility] Last Admin: 06/12/17 08:38 Dose: 4 mg Sodium Chloride (Saline Flush) 10 ml FLUSH ASDIRECTED PRN PRN Reason: Keep Vein Open Sodium Chloride (Saline Flush) 2.5 ml FLUSH ASDIRECTED PRN PRN Reason: Keep Vein Open Valacyclovir HCl (Valtrex) 1,000 mg PO BID PRN PRN Reason: COLD SORES Discontinued Medications Buspirone HCl (Buspar) Confirm Administered Dose 10 mg .ROUTE .STK-MED ONE Stop: 06/12/17 00:21 Last Admin: 06/12/17 01:30 Dose: Not Given Clonazepam (Klonopin) 1 mg PO BEDTIME [facility] Last Admin: 06/11/17 22:39 Dose: 0.5 mg Clonazepam (Klonopin) Confirm Administered Dose 1 mg .ROUTE .STK-MED ONE Stop: 06/11/17 22:39 Last Admin: 06/11/17 22:44 Dose: Not Given Clotrimazole (Mycelex) 10 mg PO 5XDAY [facility] Last Admin: 06/12/17 11:32 Dose: Not Given Cyanocobalamin (Vitamin B12) Confirm Administered Dose 1,000 mcg .ROUTE .STK- MED ONE Stop: 06/11/17 22:49 Last Admin: 06/11/17 23:00 Dose: Not Given Diltiazem HCl (Diltiazem) 10 mg IVPUSH ONETIME ONE Stop: 06/11/17 17:48 Last Admin: 06/11/17 19:18 Dose: Not Given Sodium Chloride (Normal Saline) 1,000 mls @ 1,000 mls/hr IV .Bolus ONE Stop: 06/11/17 18:46 Last Admin: 06/11/17 18:00 Dose: 1,000 mls/hr Magnesium Sulfate 2 gm/ Premix 50 mls @ 50 mls/hr IV ONETIME ONE Stop: 06/11/17 18:46 Last Admin: 06/11/17 19:16 Dose: 50 mls/hr Metoprolol Tartrate (Lopressor) 25 mg PO Q12HR [facility] Last Admin: 06/12/17 08:19 Dose: 25 mg Metoprolol Tartrate (Lopressor) 25 mg PO ONETIME ONE Stop: 06/12/17 09:51 Last Admin: 06/12/17 10:01 Dose: 25 mg Mirtazapine (Remeron) Confirm Administered Dose 30 mg .ROUTE .STK-MED ONE Stop: 06/11/17 22:49 Last Admin: 06/11/17 22:56 Dose: Not Given Mycophenolate Mofetil (Cellcept) Confirm Administered Dose 500 mg .ROUTE .STK- MED ONE Stop: 06/11/17 22:55 Last Admin: 06/11/17 23:00 Dose: Not Given Non-Formulary Medication (Bifidobacterium Infantis [Align]) 4 mg PO DAILY [facility] Non-Formulary Medication (Levomefolate Calcium [L-Methylfolate Calcium]) 7.5 mg PO DAILY [facility] *Q Meaningful Use (DIS) - VTE *Q VTE Criteria *Q: - Stroke *Q Stroke Criteria *Q: - AMI *Q AMI Criteria *Q:
[2017-06-12] MEDS ORDERED: methylPREDNISolone Sodium Succinate 125 MG/2 ML SDV IVPUSH ONE (17:05)
[2017-06-12] MEDS ORDERED: diphenhydrAMINE 50 MG/ML SDV IVPUSH ONE (17:06)
--- NOTE | 2017-06-12 17:47 | PCM.PN ---
- General Info Date of Service: 06/12/17 Subjective Update: Patient's symptoms have improved in terms of her dizziness and syncope since yesterday. Patient is still in atrial fibrillation RVR. Patient is anxious to go home however we shall be consulting cardiology to give us their opinion in regards to anticoagulation and possible cardioversion of the atrial fibrillation. She is also to have an echocardiogram today. - Patient Data Vitals - Most Recent: Last Vital Signs Temp 36.9 C 06/12/17 15:00 Pulse 104 H 06/12/17 10:01 Resp 21 H 06/12/17 17:00 BP 126/98 H 06/12/17 17:00 Pulse Ox 95 06/12/17 17:00 Weight - Most Recent: 58.3 kg I&O - Last 24 Hours: Intake & Output 06/12/17 06/12/17 06/12/17 06:59 14:59 22:59 Intake Total 1700 100 Output Total 2500 1400 Balance -800 -1300 Lab Results Last 24 Hours: Laboratory Results - last 24 hr 06/11/17 06/11/17 06/11/17 Range/Units 19:45 19:59 23:06 WBC (4.0-11.0) K/uL RBC (4.30-5.90) M/uL Hgb (12.0-16.0) g/dL Hct (36.0-46.0) % MCV (80.0-98.0) fL MCH (27.0-32.0) pg MCHC (31.0-37.0) g/dL RDW Std Deviation (28.0-62.0) fl RDW Coeff of Bailee (11.0-15.0) % Plt Count (150-400) K/uL MPV (7.40-12.00) fL Neut % (Auto) (48.0-80.0) % Lymph % (Auto) (16.0-40.0) % Vermillion % (Auto) (0.0-15.0) % Eos % (Auto) (0.0-7.0) % Baso % (Auto) (0.0-1.5) % Neut # (Auto) (1.4-5.7) K/uL Lymph # (Auto) (0.6-2.4) K/uL Vermillion # (Auto) (0.0-0.8) K/uL Eos # (Auto) (0.0-0.7) K/uL Baso # (Auto) (0.0-0.1) K/uL Nucleated RBC % /100WBC Nucleated RBCs # K/uL Sodium (136-146) mmol/L Potassium (3.5-5.1) mmol/L Chloride (98-110) mmol/L Carbon Dioxide (21-31) mmol/L BUN (6.0-23.0) mg/dL Creatinine (0.6-1.5) mg/dL Est Cr Clr Drug Dosing mL/min Estimated GFR (MDRD) ml/min Glucose (60-110) mg/dL POC Glucose 84 114 H (60-110) mg/dL Calcium (8.8-10.8) mg/dL Magnesium (1.5-2.3) mEq/L Total Bilirubin (0.1-1.5) mg/dL AST (5-40) IU/L ALT (8-54) IU/L Alkaline Phosphatase (40-150) Total Protein (6.0-8.0) g/dL Albumin (3.5-5.0) g/dL Globulin (2.0-3.5) g/dL Albumin/Globulin Ratio (1.3-2.8) Urine Color YELLOW Urine Appearance CLEAR Urine pH 6.0 (5.0-8.0) Ur Specific Garrison 1.010 (1.001-1.035) Urine Protein NEGATIVE (NEGATIVE) mg/dL Urine Glucose (UA) NEGATIVE (NEGATIVE) mg/dL Urine Ketones NEGATIVE (NEGATIVE) mg/dL Urine Occult Blood NEGATIVE (NEGATIVE) Urine Nitrite NEGATIVE (NEGATIVE) Urine Bilirubin NEGATIVE (NEGATIVE) Urine Urobilinogen 0.2 (<2.0) EU/dL Ur Leukocyte Esterase NEGATIVE (NEGATIVE) Urine RBC 0-1 (0-2/HPF) Urine WBC 0-1 (0-5/HPF) Ur Epithelial Cells OCCASIONAL (NONE-FEW) Urine Bacteria RARE (NEGATIVE) 06/12/17 06/12/17 06/12/17 Range/Units 04:30 05:31 05:31 WBC 4.74 (4.0-11.0) K/uL RBC 5.33 (4.30-5.90) M/uL Hgb 15.7 (12.0-16.0) g/dL Hct 48.2 H (36.0-46.0) % MCV 90.4 (80.0-98.0) fL MCH 29.5 (27.0-32.0) pg MCHC 32.6 (31.0-37.0) g/dL RDW Std Deviation 50.5 (28.0-62.0) fl RDW Coeff of Bailee 16 H (11.0-15.0) % Plt Count 260 (150-400) K/uL MPV 10.00 (7.40-12.00) fL Neut % (Auto) 67.8 (48.0-80.0) % Lymph % (Auto) 17.5 (16.0-40.0) % Vermillion % (Auto) 12.0 (0.0-15.0) % Eos % (Auto) 2.3 (0.0-7.0) % Baso % (Auto) 0.4 (0.0-1.5) % Neut # (Auto) 3.2 (1.4-5.7) K/uL Lymph # (Auto) 0.8 (0.6-2.4) K/uL Vermillion # (Auto) 0.6 (0.0-0.8) K/uL Eos # (Auto) 0.1 (0.0-0.7) K/uL Baso # (Auto) 0.0 (0.0-0.1) K/uL Nucleated RBC % 0.0 /100WBC Nucleated RBCs # 0 K/uL Sodium 139 (136-146) mmol/L Potassium 4.2 (3.5-5.1) mmol/L Chloride 111 H (98-110) mmol/L Carbon Dioxide 21 (21-31) mmol/L BUN 13 (6.0-23.0) mg/dL Creatinine 0.6 (0.6-1.5) mg/dL Est Cr Clr Drug Dosing 123.89 mL/min Estimated GFR (MDRD) > 60.0 ml/min Glucose 112 H (60-110) mg/dL POC Glucose 102 (60-110) mg/dL Calcium 8.0 L (8.8-10.8) mg/dL Magnesium 1.7 (1.5-2.3) mEq/L Total Bilirubin 0.5 (0.1-1.5) mg/dL AST 12 (5-40) IU/L ALT 14 (8-54) IU/L Alkaline Phosphatase 54 (40-150) Total Protein 4.2 L (6.0-8.0) g/dL Albumin 2.9 L (3.5-5.0) g/dL Globulin 1.3 L (2.0-3.5) g/dL Albumin/Globulin Ratio 2.2 (1.3-2.8) Urine Color Urine Appearance Urine pH (5.0-8.0) Ur Specific Garrison (1.001-1.035) Urine Protein (NEGATIVE) mg/dL Urine Glucose (UA) (NEGATIVE) mg/dL Urine Ketones (NEGATIVE) mg/dL Urine Occult Blood (NEGATIVE) Urine Nitrite (NEGATIVE) Urine Bilirubin (NEGATIVE) Urine Urobilinogen (<2.0) EU/dL Ur Leukocyte Esterase (NEGATIVE) Urine RBC (0-2/HPF) Urine WBC (0-5/HPF) Ur Epithelial Cells (NONE-FEW) Urine Bacteria (NEGATIVE) 06/12/17 06/12/17 06/12/17 Range/Units 08:28 11:43 17:09 WBC (4.0-11.0) K/uL RBC (4.30-5.90) M/uL Hgb (12.0-16.0) g/dL Hct (36.0-46.0) % MCV (80.0-98.0) fL MCH (27.0-32.0) pg MCHC (31.0-37.0) g/dL RDW Std Deviation (28.0-62.0) fl RDW Coeff of Abilee (11.0-15.0) % Plt Count (150-400) K/uL MPV (7.40-12.00) fL Neut % (Auto) (48.0-80.0) % Lymph % (Auto) (16.0-40.0) % Vermillion % (Auto) (0.0-15.0) % Eos % (Auto) (0.0-7.0) % Baso % (Auto) (0.0-1.5) % Neut # (Auto) (1.4-5.7) K/uL Lymph # (Auto) (0.6-2.4) K/uL Vermillion # (Auto) (0.0-0.8) K/uL Eos # (Auto) (0.0-0.7) K/uL Baso # (Auto) (0.0-0.1) K/uL Nucleated RBC % /100WBC Nucleated RBCs # K/uL Sodium (136-146) mmol/L Potassium (3.5-5.1) mmol/L Chloride (98-110) mmol/L Carbon Dioxide (21-31) mmol/L BUN (6.0-23.0) mg/dL Creatinine (0.6-1.5) mg/dL Est Cr Clr Drug Dosing mL/min Estimated GFR (MDRD) ml/min Glucose (60-110) mg/dL POC Glucose 86 94 91 (60-110) mg/dL Calcium (8.8-10.8) mg/dL Magnesium (1.5-2.3) mEq/L Total Bilirubin (0.1-1.5) mg/dL AST (5-40) IU/L ALT (8-54) IU/L Alkaline Phosphatase (40-150) Total Protein (6.0-8.0) g/dL Albumin (3.5-5.0) g/dL Globulin (2.0-3.5) g/dL Albumin/Globulin Ratio (1.3-2.8) Urine Color Urine Appearance Urine pH (5.0-8.0) Ur Specific Garrison (1.001-1.035) Urine Protein (NEGATIVE) mg/dL Urine Glucose (UA) (NEGATIVE) mg/dL Urine Ketones (NEGATIVE) mg/dL Urine Occult Blood (NEGATIVE) Urine Nitrite (NEGATIVE) Urine Bilirubin (NEGATIVE) Urine Urobilinogen (<2.0) EU/dL Ur Leukocyte Esterase (NEGATIVE) Urine RBC (0-2/HPF) Urine WBC (0-5/HPF) Ur Epithelial Cells (NONE-FEW) Urine Bacteria (NEGATIVE) Med Orders - Current: Current Medications Aspirin (Halfprin) 81 mg PO DAILY [facility] Last Admin: 06/12/17 10:01 Dose: 81 mg Buspirone HCl (Buspar) 10 mg PO BEDTIME [facility] Last Admin: 06/12/17 00:23 Dose: 10 mg Buspirone HCl (Buspar) 5 mg PO DAILY [facility] Last Admin: 06/12/17 08:20 Dose: 5 mg Clonazepam (Klonopin) 0.5 mg PO BID PRN PRN Reason: Anxiety Clonazepam (Klonopin) 0.5 mg PO BEDTIME [facility] Clonazepam (Klonopin) 0.25 mg PO DAILY [facility] Last Admin: 06/12/17 10:01 Dose: 0.25 mg Cyanocobalamin (Vitamin B12) 1,000 mcg IM Q30D [facility] Last Admin: 06/11/17 23:18 Dose: Not Given Diltiazem HCl (Diltiazem) 20 mg IVPUSH Q3HR PRN PRN Reason: Tachycardia Metoprolol Tartrate (Lopressor) 50 mg PO Q12HR [facility] Mirtazapine (Remeron) 30 mg PO BEDTIME [facility] Last Admin: 06/12/17 00:23 Dose: 30 mg Mycophenolate Mofetil (Cellcept) 500 mg PO BID [facility] Last Admin: 06/12/17 08:20 Dose: 500 mg Non-Formulary Medication (Ergocalciferol (Vitamin D2)) 50,000 unit PO Q7D [facility] Last Admin: 06/11/17 22:43 Dose: Not Given Omeprazole (Omeprazole) 40 mg PO ACBREAKFAST [facility] Last Admin: 06/12/17 08:19 Dose: 40 mg Ondansetron HCl (Zofran) 4 mg IVPUSH Q4H PRN PRN Reason: Nausea Ondansetron HCl (Zofran Odt) 8 mg PO TID PRN PRN Reason: Nausea Tpn Per Patient 1 each IVPUSH DAILY@1999 [facility] Last Admin: 06/11/17 21:00 Dose: 1 each Melatonin 5 Mg 1 each PO BEDTIME [facility] Last Admin: 06/11/17 22:50 Dose: 1 each (Levomefolate Calcium [L- Methylfolate Calcium ] 7.5 Mg) 1 each PO DAILY [facility] Last Admin: 06/12/17 08:50 Dose: 1 each Align 4 Mg 1 each PO DAILY [facility] Last Admin: 06/12/17 08:50 Dose: 1 each Prednisone (Prednisone) 4 mg PO DAILY [facility] Last Admin: 06/12/17 08:38 Dose: 4 mg Sodium Chloride (Saline Flush) 10 ml FLUSH ASDIRECTED PRN PRN Reason: Keep Vein Open Sodium Chloride (Saline Flush) 2.5 ml FLUSH ASDIRECTED PRN PRN Reason: Keep Vein Open Valacyclovir HCl (Valtrex) 1,000 mg PO BID PRN PRN Reason: COLD SORES Discontinued Medications Buspirone HCl (Buspar) Confirm Administered Dose 10 mg .ROUTE .STK-MED ONE Stop: 06/12/17 00:21 Last Admin: 06/12/17 01:30 Dose: Not Given Clonazepam (Klonopin) 1 mg PO BEDTIME [facility] Last Admin: 06/11/17 22:39 Dose: 0.5 mg Clonazepam (Klonopin) Confirm Administered Dose 1 mg .ROUTE .STK-MED ONE Stop: 06/11/17 22:39 Last Admin: 06/11/17 22:44 Dose: Not Given Clotrimazole (Mycelex) 10 mg PO 5XDAY [facility] Last Admin: 06/12/17 11:32 Dose: Not Given Cyanocobalamin (Vitamin B12) Confirm Administered Dose 1,000 mcg .ROUTE .STK- MED ONE Stop: 06/11/17 22:49 Last Admin: 06/11/17 23:00 Dose: Not Given Diltiazem HCl (Diltiazem) 10 mg IVPUSH ONETIME ONE Stop: 06/11/17 17:48 Last Admin: 06/11/17 19:18 Dose: Not Given Diphenhydramine HCl (Benadryl) 25 mg IVPUSH ONETIME ONE Stop: 06/12/17 17:07 Last Admin: 06/12/17 17:15 Dose: 25 mg Sodium Chloride (Normal Saline) 1,000 mls @ 1,000 mls/hr IV .Bolus ONE Stop: 06/11/17 18:46 Last Admin: 06/11/17 18:00 Dose: 1,000 mls/hr Magnesium Sulfate 2 gm/ Premix 50 mls @ 50 mls/hr IV ONETIME ONE Stop: 06/11/17 18:46 Last Admin: 06/11/17 19:16 Dose: 50 mls/hr Methylprednisolone Sodium Succinate (Solu-Medrol) 125 mg IVPUSH ONETIME ONE Stop: 06/12/17 17:06 Last Admin: 06/12/17 17:15 Dose: 125 mg Metoprolol Tartrate (Lopressor) 25 mg PO Q12HR [facility] Last Admin: 06/12/17 08:19 Dose: 25 mg Metoprolol Tartrate (Lopressor) 25 mg PO ONETIME ONE Stop: 06/12/17 09:51 Last Admin: 06/12/17 10:01 Dose: 25 mg Mirtazapine (Remeron) Confirm Administered Dose 30 mg .ROUTE .STK-MED ONE Stop: 06/11/17 22:49 Last Admin: 06/11/17 22:56 Dose: Not Given Mycophenolate Mofetil (Cellcept) Confirm Administered Dose 500 mg .ROUTE .STK- MED ONE Stop: 06/11/17 22:55 Last Admin: 06/11/17 23:00 Dose: Not Given Non-Formulary Medication (Bifidobacterium Infantis [Align]) 4 mg PO DAILY DEREK Non-Formulary Medication (Levomefolate Calcium [L-Methylfolate Calcium]) 7.5 mg PO DAILY DEREK - Exam General: Alert, Oriented, Cooperative HEENT: Pupils Equal Neck: Supple Lungs: Clear to Auscultation, Normal Respiratory Effort Cardiovascular: Irregular Rhythm, Tachycardia GI/Abdominal Exam: Normal Bowel Sounds Neurological: No New Focal Deficit - Problem List & Annotations (1) Atrial fibrillation with RVR SNOMED Code(s): 618728572897408 Code(s): I48.91 - UNSPECIFIED ATRIAL FIBRILLATION Status: Acute Current Visit: Yes - Problem List Review Problem List Initiated/Reviewed/Updated: Yes - My Orders Last 24 Hours: My Active Orders 06/11/17 19:20 Patient Status [ADT] Routine Height and Weight [RC] DAILY Oxygen Therapy [RC] PRN Up With Assistance [RC] ASDIRECTED Vital Signs [RC] Q1H Ondansetron [Zofran] 4 mg IVPUSH Q4H PRN Sodium Chloride 0.9% [Saline Flush] 10 ml FLUSH ASDIRECTED PRN Sodium Chloride 0.9% [Saline Flush] 2.5 ml FLUSH ASDIRECTED PRN Peripheral IV Insertion Adult [OM.PC] Routine Saline Lock Insert [OM.PC] Routine Resuscitation Status Routine 06/11/17 19:22 Cardiac Monitoring [RC] Q8H Intake and Output [RC] Q12H Notify Provider Vital Signs [RC] ASDIRECTED Pulse Oximetry [RC] CONTINUOUS 06/11/17 19:23 Antiembolic Devices [RC] Q12H Sequential Compression Device [OM.PC] Per Unit Routine 06/11/17 19:24 Blood Glucose Check, Bedside [RC] PRN 06/11/17 19:26 Diltiazem 20 mg IVPUSH Q3HR PRN 06/11/17 19:32 Blood Glucose Check, Bedside [RC] Q4HR 06/12/17 13:58 Consult to Physician [CONS] Routine 06/12/17 13:59 Notify Provider Consults [RC] ASDIRECTED 06/12/17 19:33 Echo Comp wo Cont [US] Routine - Plan Plan:: This is a 31-year-old female with a significant past medical history presenting with new onset atrial fibrillation with RVR. Assessment/plan: 1. New onset atrial fibrillation with RVR -Patient may be dehydrated as such the patient is being given IV fluid bolus and we shall see if this helps control her heart rate below 110 bpm. Heart rate is not below 110 then we can give Cardizem 10 mg every 3 hours with a heart rate above 110. -Patient Lopressor 50 mg 3 times a day heart rate control. -Patient's echocardiogram indicates possible thrombus on the catheter. Dr. Pittman suggested getting a CT angiogram to rule out PE -Patient also be anticoagulating the patient shall clarify tomorrow with Dr. Pittman whether or not we can use one of the newer anticoagulative medication.The patient will be on full dose Lovenox 1 mg per kilogram twice a day, and we should discuss tomorrow whether or not to start Coumadin or use one of the newer anticoagulative medications. Patient admitted under observation ICU.
[2017-06-12] MEDS ORDERED: Enoxaparin 60 MG/0.6 ML Syringe SUBCUT ONE (19:09)
[2017-06-12] MEDS ORDERED: Iopamidol 755 MG/ML 200 ML Multipack Bottle IVPUSH STA (19:17)
--- NOTE | 2017-06-12 19:26 | CONS ---
DATE OF CONSULTATION: DATE OF : 1985 PRIMARY CARE PHYSICIAN: None PCP REASON FOR CONSULTATION: New onset of atrial fibrillation. 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 History of chronic anemia, receiving IV iron, presented to the hospital at this time from the clinic due to the palpitation, irregular heartbeat. On the day of admission, she woke up with palpitation symptoms with feeling dizzy as well as some shortness of breath. However, she denies chest pain, she decided to make an appointment to see the primary care doctor in the clinic, and she was found to have atrial fibrillation with RVR, and then she was admitted directly from the clinic, and currently her heart rate seemed to be reasonably controlled, ranging between 70 to 80 up until 130, depends on her activities, and currently she is on metoprolol 50 b.i.d. as well as an aspirin, however, the anticoagulation has not been started due to the concern about GI blood loss, chronic anemia in the past with Crohn disease and malabsorption. She received iron IV treatment regularly because of Crohn disease and malabsorption, and she also mentioned that she has a chronic blood loss as well, and she has been followed by the GI in [facility], and she stated that she has transesophageal echocardiogram done one and a half years ago at [facility]. At that point, it did not show anything, it only showed possible hole between the top chamber of the heart, and she denied any other kind of test for the heart. She also mentioned that she has a history of lymphatic malformation that she need to have a shunt put on as well as right lung pleurodesis done in [facility] as well. She is also followed by the Neurology for [employer] vasculitis, this seemed to be stable in that standpoint. She denies history of blood clot in her lungs or in her legs, and she is supposed to have the procedure done in [place], done by interventional radiologist for the shunt. PAST MEDICAL HISTORY: Including Crohn disease and history of [employer] vasculitis, on immunosuppressive drugs, status post chronic TPN, status post Yarbrough catheter, status post Edson shunt. ALLERGIES: She is allergic to contrast and the last time that she had a CAT scan with IV contrast was last September, at that time, she was premedicated with Solu-Medrol and Benadryl and it seemed to be no reaction, and the reaction that she had with the IV contrast before is a total-body hive. REVIEW OF SYSTEMS: Except indicated in the HPI, otherwise has been negative. CURRENT MEDICATIONS: Including metoprolol 50 b.i.d. as well as aspirin. SOCIAL HISTORY: She denies smoking, drug use or alcoholic consumption. FAMILY HISTORY: Denies family history of heart problem. PHYSICAL EXAMINATION: VITAL SIGNS: Blood pressure is 110/70, heart rate ranging between 70 to 130, O2 saturation is 96% on room air, respiration 18, body temperature 36.8. HEENT: Not pale, no jaundice, no JVD. HEART: Normal S1, S2. No murmurs. Totally irregular. LUNGS: Clear. ABDOMEN: Soft, nontender. Bowel sounds present. No hepatosplenomegaly. EXTREMITIES: Legs, no edema. LABORATORY INVESTIGATIONS: EKG showed atrial fibrillation with a heart rate of 99, QRS duration 85. Echocardiogram done on June 12 did show LV ejection fraction of 40-45%, and also echogenic structure on the right atrium suggesting possible thrombus, and the right ventricle systolic function seemed to be mildly dilated, however, there is normal systolic function. 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 She definitely has a history of anemia, receiving IV iron in the past and a possible GI blood loss. I will get a hold of a GI doctor in [facility], however, with the finding on the echocardiogram suggesting thrombus, I think we should start on the IV heparin and that also prepared her for a cardioversion as well. We will try to do the rhythm restorationist by cardioversion, however, she need to be on the Coumadin and heparin at least for four weeks, and then VIVIANA probably need to be repeated to make sure there was no thrombus in the right atrial or anywhere in her heart chamber before doing a cardioversion and then afterwards she probably need to be committed with Coumadin at least for four weeks. I will try to get the record from [facility] as well regarding the previous echocardiogram as well as the VIVIANA, and also would do the CT angiogram premedicated with Solu-Medrol and Benadryl to rule out PE as well. We will increase the metoprolol to 50 t.i.d. and heparin needs to be started and Lovenox could be the alternative option and bridging with Coumadin. MIRIAN / BETY /[id number]
[2017-06-12] MEDS: [UNRECOGNIZED DRUG - NUTRITION] IVPUSH SCH (19:57)
[2017-06-12] MEDS: Enoxaparin 60 MG/0.6 ML Syringe SUBCUT SCH (20:21)
[2017-06-12] MEDS: MELATONIN 5 MG PO SCH (20:28)
[2017-06-12] MEDS ORDERED: Metoprolol Tartrate 50 MG Tab PO SCH (21:00)
[2017-06-12] MEDS ORDERED: ClonazePAM 1 MG Tab PO SCH ×2 (21:00)
[2017-06-12] MEDS: Metoprolol Tartrate 50 MG Tab PO SCH (21:08)
[2017-06-13] MEDS: Metoprolol Tartrate 50 MG Tab PO SCH ×2 (05:03→14:28)
[2017-06-13] MEDS: Omeprazole 20 MG Cap.CR PO SCH (06:30)
[2017-06-13] MEDS: busPIRone 5 MG Tab PO SCH (08:13)
[2017-06-13] MEDS: Mycophenolate Mofetil 250 MG Cap PO SCH (08:13)
[2017-06-13] MEDS: Aspirin 81 MG Tab.EC PO SCH (08:13)
[2017-06-13] MEDS: ClonazePAM 0.5 MG Tab PO SCH (08:14)
[2017-06-13] MEDS: Enoxaparin 60 MG/0.6 ML Syringe SUBCUT SCH (08:14)
[2017-06-13] MEDS: predniSONE 1 MG Tab PO SCH (08:15)
[2017-06-13] MEDS: LEVOMEFOLATE CALCIUM 7.5 MG PO SCH (08:16)
[2017-06-13] MEDS: ALIGN 4 MG PO SCH (08:17)
[2017-06-13 09:08] LABS: CHLORIDE,CL 108 mmol/L (98-110); SODIUM,NA 138 mmol/L (136-146)
--- NOTE | 2017-06-13 12:08 | PCM.PN ---
- General Info Date of Service: 06/13/17 Subjective Update: Patient is unwell overnight there was a little bit concerned for dehydration but the patient said that she did not have anything to drink overnight. Patient' s atrial fibrillation has now converted over to sinus rhythm. Patient was given Lopressor 50 mg 3 times a day for the atrial fibrillation. Patient will be given Lovenox training today started on Coumadin and likely discharged with follow-up instructions with her primary care physician Dr. Garnica, follow-up with Dr. Corado cardiology, and follow-up with coagulation clinic on Friday. - Patient Data Vitals - Most Recent: Last Vital Signs Temp 36.6 C 06/13/17 08:00 Pulse 82 06/13/17 07:00 Resp 16 06/13/17 11:00 BP 117/83 06/13/17 10:00 Pulse Ox 95 06/13/17 11:00 Weight - Most Recent: 58.2 kg I&O - Last 24 Hours: Intake & Output 06/12/17 06/13/17 06/13/17 22:59 06:59 14:59 Intake Total 100 1890 Output Total 2600 800 Balance -2500 1090 Lab Results Last 24 Hours: Laboratory Results - last 24 hr 06/12/17 06/12/17 06/12/17 Range/Units 11:43 17:09 20:20 WBC (4.0-11.0) K/uL RBC (4.30-5.90) M/uL Hgb (12.0-16.0) g/dL Hct (36.0-46.0) % MCV (80.0-98.0) fL MCH (27.0-32.0) pg MCHC (31.0-37.0) g/dL RDW Std Deviation (28.0-62.0) fl RDW Coeff of Bailee (11.0-15.0) % Plt Count (150-400) K/uL MPV (7.40-12.00) fL Neut % (Auto) (48.0-80.0) % Lymph % (Auto) (16.0-40.0) % [place] % (Auto) (0.0-15.0) % Eos % (Auto) (0.0-7.0) % Baso % (Auto) (0.0-1.5) % Neut # (Auto) (1.4-5.7) K/uL Lymph # (Auto) (0.6-2.4) K/uL [place] # (Auto) (0.0-0.8) K/uL Eos # (Auto) (0.0-0.7) K/uL Baso # (Auto) (0.0-0.1) K/uL Nucleated RBC % /100WBC Nucleated RBCs # K/uL INR Sodium (136-146) mmol/L Potassium (3.5-5.1) mmol/L Chloride (98-110) mmol/L Carbon Dioxide (21-31) mmol/L BUN (6.0-23.0) mg/dL Creatinine (0.6-1.5) mg/dL Est Cr Clr Drug Dosing mL/min Estimated GFR (MDRD) ml/min Glucose (60-110) mg/dL POC Glucose 94 91 134 H (60-110) mg/dL Calcium (8.8-10.8) mg/dL Total Bilirubin (0.1-1.5) mg/dL AST (5-40) IU/L ALT (8-54) IU/L Alkaline Phosphatase (40-150) Total Protein (6.0-8.0) g/dL Albumin (3.5-5.0) g/dL Globulin (2.0-3.5) g/dL Albumin/Globulin Ratio (1.3-2.8) 06/12/17 06/13/17 06/13/17 Range/Units 22:57 04:34 08:26 WBC 8.76 (4.0-11.0) K/uL RBC 5.26 (4.30-5.90) M/uL Hgb 15.8 (12.0-16.0) g/dL Hct 47.0 H (36.0-46.0) % MCV 89.4 (80.0-98.0) fL MCH 30.0 (27.0-32.0) pg MCHC 33.6 (31.0-37.0) g/dL RDW Std Deviation 48.3 (28.0-62.0) fl RDW Coeff of Bailee 15 (11.0-15.0) % Plt Count 276 (150-400) K/uL MPV 9.60 (7.40-12.00) fL Neut % (Auto) 89.4 H (48.0-80.0) % Lymph % (Auto) 4.0 L (16.0-40.0) % [place] % (Auto) 6.6 (0.0-15.0) % Eos % (Auto) 0.0 (0.0-7.0) % Baso % (Auto) 0.0 (0.0-1.5) % Neut # (Auto) 7.8 H (1.4-5.7) K/uL Lymph # (Auto) 0.4 L (0.6-2.4) K/uL [place] # (Auto) 0.6 (0.0-0.8) K/uL Eos # (Auto) 0.0 (0.0-0.7) K/uL Baso # (Auto) 0.0 (0.0-0.1) K/uL Nucleated RBC % 0.0 /100WBC Nucleated RBCs # 0 K/uL INR Sodium (136-146) mmol/L Potassium (3.5-5.1) mmol/L Chloride (98-110) mmol/L Carbon Dioxide (21-31) mmol/L BUN (6.0-23.0) mg/dL Creatinine (0.6-1.5) mg/dL Est Cr Clr Drug Dosing mL/min Estimated GFR (MDRD) ml/min Glucose (60-110) mg/dL POC Glucose 160 H 139 H (60-110) mg/dL Calcium (8.8-10.8) mg/dL Total Bilirubin (0.1-1.5) mg/dL AST (5-40) IU/L ALT (8-54) IU/L Alkaline Phosphatase (40-150) Total Protein (6.0-8.0) g/dL Albumin (3.5-5.0) g/dL Globulin (2.0-3.5) g/dL Albumin/Globulin Ratio (1.3-2.8) 06/13/17 06/13/17 Range/Units 08:26 08:26 WBC (4.0-11.0) K/uL RBC (4.30-5.90) M/uL Hgb (12.0-16.0) g/dL Hct (36.0-46.0) % MCV (80.0-98.0) fL MCH (27.0-32.0) pg MCHC (31.0-37.0) g/dL RDW Std Deviation (28.0-62.0) fl RDW Coeff of Bailee (11.0-15.0) % Plt Count (150-400) K/uL MPV (7.40-12.00) fL Neut % (Auto) (48.0-80.0) % Lymph % (Auto) (16.0-40.0) % [place] % (Auto) (0.0-15.0) % Eos % (Auto) (0.0-7.0) % Baso % (Auto) (0.0-1.5) % Neut # (Auto) (1.4-5.7) K/uL Lymph # (Auto) (0.6-2.4) K/uL [place] # (Auto) (0.0-0.8) K/uL Eos # (Auto) (0.0-0.7) K/uL Baso # (Auto) (0.0-0.1) K/uL Nucleated RBC % /100WBC Nucleated RBCs # K/uL INR 1.04 Sodium 138 (136-146) mmol/L Potassium 4.6 (3.5-5.1) mmol/L Chloride 108 (98-110) mmol/L Carbon Dioxide 22 (21-31) mmol/L BUN 16 (6.0-23.0) mg/dL Creatinine 0.6 (0.6-1.5) mg/dL Est Cr Clr Drug Dosing 123.68 mL/min Estimated GFR (MDRD) > 60.0 ml/min Glucose 103 (60-110) mg/dL POC Glucose (60-110) mg/dL Calcium 8.6 L (8.8-10.8) mg/dL Total Bilirubin 0.4 (0.1-1.5) mg/dL AST 13 (5-40) IU/L ALT 21 (8-54) IU/L Alkaline Phosphatase 58 (40-150) Total Protein 4.9 L (6.0-8.0) g/dL Albumin 3.1 L (3.5-5.0) g/dL Globulin 1.8 L (2.0-3.5) g/dL Albumin/Globulin Ratio 1.7 (1.3-2.8) Med Orders - Current: Current Medications Aspirin (Halfprin) 81 mg PO DAILY [facility] Last Admin: 06/13/17 08:13 Dose: 81 mg Buspirone HCl (Buspar) 10 mg PO BEDTIME [facility] Last Admin: 06/12/17 20:23 Dose: 10 mg Buspirone HCl (Buspar) 5 mg PO DAILY [facility] Last Admin: 06/13/17 08:13 Dose: 5 mg Clonazepam (Klonopin) 0.5 mg PO BID PRN PRN Reason: Anxiety Clonazepam (Klonopin) 0.5 mg PO BEDTIME [facility] Last Admin: 06/12/17 20:23 Dose: 0.5 mg Clonazepam (Klonopin) 0.25 mg PO DAILY [facility] Last Admin: 06/13/17 08:14 Dose: 0.25 mg Cyanocobalamin (Vitamin B12) 1,000 mcg IM Q30D [facility] Last Admin: 06/11/17 23:18 Dose: Not Given Diltiazem HCl (Diltiazem) 20 mg IVPUSH Q3HR PRN PRN Reason: Tachycardia Enoxaparin Sodium (Lovenox) 60 mg SUBCUT BID [facility] Last Admin: 06/13/17 08:14 Dose: 60 mg Metoprolol Tartrate (Lopressor) 50 mg PO TID [facility] Last Admin: 06/13/17 05:03 Dose: 50 mg Mirtazapine (Remeron) 30 mg PO BEDTIME [facility] Last Admin: 06/12/17 20:23 Dose: 30 mg Mycophenolate Mofetil (Cellcept) 500 mg PO BID [facility] Last Admin: 06/13/17 08:13 Dose: 500 mg Non-Formulary Medication (Ergocalciferol (Vitamin D2)) 50,000 unit PO Q7D [facility] Last Admin: 06/11/17 22:43 Dose: Not Given Omeprazole (Omeprazole) 40 mg PO ACBREAKFAST [facility] Last Admin: 06/13/17 06:30 Dose: 40 mg Ondansetron HCl (Zofran) 4 mg IVPUSH Q4H PRN PRN Reason: Nausea Last Admin: 06/12/17 22:52 Dose: 4 mg Ondansetron HCl (Zofran Odt) 8 mg PO TID PRN PRN Reason: Nausea Tpn Per Patient 1 each IVPUSH DAILY@1999 [facility] Last Admin: 06/12/17 19:57 Dose: 1 each Melatonin 5 Mg 1 each PO BEDTIME [facility] Last Admin: 06/12/17 20:28 Dose: 1 each (Levomefolate Calcium [L- Methylfolate Calcium ] 7.5 Mg) 1 each PO DAILY [facility] Last Admin: 06/13/17 08:16 Dose: 1 each Align 4 Mg 1 each PO DAILY [facility] Last Admin: 06/13/17 08:17 Dose: 1 each Prednisone (Prednisone) 4 mg PO DAILY [facility] Last Admin: 06/13/17 08:15 Dose: 4 mg Sodium Chloride (Saline Flush) 10 ml FLUSH ASDIRECTED PRN PRN Reason: Keep Vein Open Sodium Chloride (Saline Flush) 2.5 ml FLUSH ASDIRECTED PRN PRN Reason: Keep Vein Open Valacyclovir HCl (Valtrex) 1,000 mg PO BID PRN PRN Reason: COLD SORES Warfarin Sodium (Coumadin) 5 mg PO DAILY@1400 [facility] Discontinued Medications Buspirone HCl (Buspar) Confirm Administered Dose 10 mg .ROUTE .STK-MED ONE Stop: 06/12/17 00:21 Last Admin: 06/12/17 01:30 Dose: Not Given Clonazepam (Klonopin) 1 mg PO BEDTIME [facility] Last Admin: 06/11/17 22:39 Dose: 0.5 mg Clonazepam (Klonopin) Confirm Administered Dose 1 mg .ROUTE .STK-MED ONE Stop: 06/11/17 22:39 Last Admin: 06/11/17 22:44 Dose: Not Given Clotrimazole (Mycelex) 10 mg PO 5XDAY [facility] Last Admin: 06/12/17 11:32 Dose: Not Given Cyanocobalamin (Vitamin B12) Confirm Administered Dose 1,000 mcg .ROUTE .STK- MED ONE Stop: 06/11/17 22:49 Last Admin: 06/11/17 23:00 Dose: Not Given Diltiazem HCl (Diltiazem) 10 mg IVPUSH ONETIME ONE Stop: 06/11/17 17:48 Last Admin: 06/11/17 19:18 Dose: Not Given Diphenhydramine HCl (Benadryl) 25 mg IVPUSH ONETIME ONE Stop: 06/12/17 17:07 Last Admin: 06/12/17 17:15 Dose: 25 mg Enoxaparin Sodium (Lovenox) 60 mg SUBCUT BID ONE Stop: 06/12/17 19:10 Last Admin: 06/12/17 20:46 Dose: Not Given Sodium Chloride (Normal Saline) 1,000 mls @ 1,000 mls/hr IV .Bolus ONE Stop: 06/11/17 18:46 Last Admin: 06/11/17 18:00 Dose: 1,000 mls/hr Magnesium Sulfate 2 gm/ Premix 50 mls @ 50 mls/hr IV ONETIME ONE Stop: 06/11/17 18:46 Last Admin: 06/11/17 19:16 Dose: 50 mls/hr Iopamidol (Isovue Multipack-370 (76%)) 50 ml IVPUSH ONETIME STA Stop: 06/12/17 19:18 Last Admin: 06/12/17 19:18 Dose: 50 ml Methylprednisolone Sodium Succinate (Solu-Medrol) 125 mg IVPUSH ONETIME ONE Stop: 06/12/17 17:06 Last Admin: 06/12/17 17:15 Dose: 125 mg Metoprolol Tartrate (Lopressor) 25 mg PO Q12HR [facility] Last Admin: 06/12/17 08:19 Dose: 25 mg Metoprolol Tartrate (Lopressor) 25 mg PO ONETIME ONE Stop: 06/12/17 09:51 Last Admin: 06/12/17 10:01 Dose: 25 mg Metoprolol Tartrate (Lopressor) 50 mg PO Q12HR [facility] Mirtazapine (Remeron) Confirm Administered Dose 30 mg .ROUTE .STK-MED ONE Stop: 06/11/17 22:49 Last Admin: 06/11/17 22:56 Dose: Not Given Mycophenolate Mofetil (Cellcept) Confirm Administered Dose 500 mg .ROUTE .STK- MED ONE Stop: 06/11/17 22:55 Last Admin: 06/11/17 23:00 Dose: Not Given Non-Formulary Medication (Bifidobacterium Infantis [Align]) 4 mg PO DAILY [facility] Non-Formulary Medication (Levomefolate Calcium [L-Methylfolate Calcium]) 7.5 mg PO DAILY [facility] Warfarin Sodium (Coumadin Ask) 1 each PO ONETIME ONE Stop: 06/13/17 09:55 Last Admin: 06/13/17 11:04 Dose: Not Given - Exam General: Alert, Oriented, Cooperative Lungs: Clear to Auscultation, Normal Respiratory Effort Cardiovascular: Regular Rate, Regular Rhythm GI/Abdominal Exam: Normal Bowel Sounds - Problem List & Annotations (1) Atrial fibrillation with RVR SNOMED Code(s): 287640826509922 Code(s): I48.91 - UNSPECIFIED ATRIAL FIBRILLATION Status: Acute Current Visit: Yes - Problem List Review Problem List Initiated/Reviewed/Updated: Yes - My Orders Last 24 Hours: My Active Orders 06/12/17 13:58 Consult to Physician [CONS] Routine 06/12/17 13:59 Notify Provider Consults [RC] ASDIRECTED 06/12/17 19:33 Echo Comp wo Cont [US] Routine 06/12/17 21:00 Enoxaparin [Lovenox] 60 mg SUBCUT BID 06/12/17 22:00 Metoprolol Tartrate [Lopressor] 50 mg PO TID - Plan Plan:: This is a 31-year-old female with a significant past medical history presenting with new onset atrial fibrillation with RVR. Assessment/plan: 1. New onset atrial fibrillation with RVR -Patient's new onset atrial fibrillation has now converted to normal sinus rhythm. Patient was on Lopressor 50 mg 3 times a day by mouth, now that she is converted back to normal sinus rhythm we shall discharge her home on Lopressor 50 mg twice a day and discontinue her metoprolol succinate medication. -Patient's echocardiogram indicates possible thrombus on the catheter. Dr. Pittman suggested getting a CT angiogram to rule out PE -Patient shall be going on 1.5 mg/kg dose of Lovenox as bridging while she starts her Coumadin therapy. Coumadin is indicated for patients that have a thrombus on a catheter site which is what is happening in her case. Patient will require follow-up with coagulation clinic on Friday to ensure her INR is appropriate. Patient shall follow up with her primary care physician Dr. Garnica for posthospitalization stay. Dr. Pittman she'll also follow-up with the patient in regards to her new onset atrial fibrillation. Dr. Pittman is also setting up the patient with a [facility] in [place] next month. As far as her anti-coagulations concern I've asked the mom to hold the multivitamin that has a vitamin K within her TPN and see if she can get a multivitamin but does not has vitamin K as that will not interact with Coumadin. Patient is to inform all of her specialists including her dentist. She is having a chronic procedure done about her Coumadin dosage and new onset atrial fibrillation. Patient admitted under observation ICU.
[2017-06-13 12:23] VITALS: BP 102/71
[2017-06-13] MEDS ORDERED: Warfarin 5 MG Tab PO SCH (14:00)
--- NOTE | 2017-06-13 15:02 | PCM.PN ---
- General Info Date of Service: 06/13/17 Admission Dx/Problem (Free Text): new onset afib Subjective Update: She converted to SR on metoprolol 50 TID, lovenox SQ braidging with coumadin for thrombus with catheter on RA on echo. Functional Status: Reports: Pain Controlled - Review of Systems General: Reports: No Symptoms HEENT: Reports: No Symptoms Pulmonary: Reports: No Symptoms Cardiovascular: Reports: No Symptoms Gastrointestinal: Reports: No Symptoms Genitourinary: Reports: No Symptoms Musculoskeletal: Reports: No Symptoms Skin: Reports: No Symptoms Neurological: Reports: No Symptoms Psychiatric: Reports: No Symptoms - Patient Data Vitals - Most Recent: Last Vital Signs Temp 36.6 C 06/13/17 08:00 Pulse 82 06/13/17 07:00 Resp 14 06/13/17 12:00 BP 102/71 06/13/17 12:00 Pulse Ox 96 06/13/17 12:00 Weight - Most Recent: 58.2 kg I&O - Last 24 Hours: Intake & Output 06/12/17 06/13/17 06/13/17 22:59 06:59 14:59 Intake Total 100 1890 Output Total 2600 800 Balance -2500 1090 Lab Results Last 24 Hours: Laboratory Results - last 24 hr 06/12/17 06/12/17 06/12/17 Range/Units 11:43 17:09 20:20 WBC (4.0-11.0) K/uL RBC (4.30-5.90) M/uL Hgb (12.0-16.0) g/dL Hct (36.0-46.0) % MCV (80.0-98.0) fL MCH (27.0-32.0) pg MCHC (31.0-37.0) g/dL RDW Std Deviation (28.0-62.0) fl RDW Coeff of Bailee (11.0-15.0) % Plt Count (150-400) K/uL MPV (7.40-12.00) fL Neut % (Auto) (48.0-80.0) % Lymph % (Auto) (16.0-40.0) % [place] % (Auto) (0.0-15.0) % Eos % (Auto) (0.0-7.0) % Baso % (Auto) (0.0-1.5) % Neut # (Auto) (1.4-5.7) K/uL Lymph # (Auto) (0.6-2.4) K/uL [place] # (Auto) (0.0-0.8) K/uL Eos # (Auto) (0.0-0.7) K/uL Baso # (Auto) (0.0-0.1) K/uL Nucleated RBC % /100WBC Nucleated RBCs # K/uL INR Sodium (136-146) mmol/L Potassium (3.5-5.1) mmol/L Chloride (98-110) mmol/L Carbon Dioxide (21-31) mmol/L BUN (6.0-23.0) mg/dL Creatinine (0.6-1.5) mg/dL Est Cr Clr Drug Dosing mL/min Estimated GFR (MDRD) ml/min Glucose (60-110) mg/dL POC Glucose 94 91 134 H (60-110) mg/dL Calcium (8.8-10.8) mg/dL Total Bilirubin (0.1-1.5) mg/dL AST (5-40) IU/L ALT (8-54) IU/L Alkaline Phosphatase (40-150) Total Protein (6.0-8.0) g/dL Albumin (3.5-5.0) g/dL Globulin (2.0-3.5) g/dL Albumin/Globulin Ratio (1.3-2.8) 06/12/17 06/13/17 06/13/17 Range/Units 22:57 04:34 08:26 WBC 8.76 (4.0-11.0) K/uL RBC 5.26 (4.30-5.90) M/uL Hgb 15.8 (12.0-16.0) g/dL Hct 47.0 H (36.0-46.0) % MCV 89.4 (80.0-98.0) fL MCH 30.0 (27.0-32.0) pg MCHC 33.6 (31.0-37.0) g/dL RDW Std Deviation 48.3 (28.0-62.0) fl RDW Coeff of Bailee 15 (11.0-15.0) % Plt Count 276 (150-400) K/uL MPV 9.60 (7.40-12.00) fL Neut % (Auto) 89.4 H (48.0-80.0) % Lymph % (Auto) 4.0 L (16.0-40.0) % [place] % (Auto) 6.6 (0.0-15.0) % Eos % (Auto) 0.0 (0.0-7.0) % Baso % (Auto) 0.0 (0.0-1.5) % Neut # (Auto) 7.8 H (1.4-5.7) K/uL Lymph # (Auto) 0.4 L (0.6-2.4) K/uL [place] # (Auto) 0.6 (0.0-0.8) K/uL Eos # (Auto) 0.0 (0.0-0.7) K/uL Baso # (Auto) 0.0 (0.0-0.1) K/uL Nucleated RBC % 0.0 /100WBC Nucleated RBCs # 0 K/uL INR Sodium (136-146) mmol/L Potassium (3.5-5.1) mmol/L Chloride (98-110) mmol/L Carbon Dioxide (21-31) mmol/L BUN (6.0-23.0) mg/dL Creatinine (0.6-1.5) mg/dL Est Cr Clr Drug Dosing mL/min Estimated GFR (MDRD) ml/min Glucose (60-110) mg/dL POC Glucose 160 H 139 H (60-110) mg/dL Calcium (8.8-10.8) mg/dL Total Bilirubin (0.1-1.5) mg/dL AST (5-40) IU/L ALT (8-54) IU/L Alkaline Phosphatase (40-150) Total Protein (6.0-8.0) g/dL Albumin (3.5-5.0) g/dL Globulin (2.0-3.5) g/dL Albumin/Globulin Ratio (1.3-2.8) 06/13/17 06/13/17 06/13/17 Range/Units 08:26 08:26 12:02 WBC (4.0-11.0) K/uL RBC (4.30-5.90) M/uL Hgb (12.0-16.0) g/dL Hct (36.0-46.0) % MCV (80.0-98.0) fL MCH (27.0-32.0) pg MCHC (31.0-37.0) g/dL RDW Std Deviation (28.0-62.0) fl RDW Coeff of Bailee (11.0-15.0) % Plt Count (150-400) K/uL MPV (7.40-12.00) fL Neut % (Auto) (48.0-80.0) % Lymph % (Auto) (16.0-40.0) % [place] % (Auto) (0.0-15.0) % Eos % (Auto) (0.0-7.0) % Baso % (Auto) (0.0-1.5) % Neut # (Auto) (1.4-5.7) K/uL Lymph # (Auto) (0.6-2.4) K/uL [place] # (Auto) (0.0-0.8) K/uL Eos # (Auto) (0.0-0.7) K/uL Baso # (Auto) (0.0-0.1) K/uL Nucleated RBC % /100WBC Nucleated RBCs # K/uL INR 1.04 Sodium 138 (136-146) mmol/L Potassium 4.6 (3.5-5.1) mmol/L Chloride 108 (98-110) mmol/L Carbon Dioxide 22 (21-31) mmol/L BUN 16 (6.0-23.0) mg/dL Creatinine 0.6 (0.6-1.5) mg/dL Est Cr Clr Drug Dosing 123.68 mL/min Estimated GFR (MDRD) > 60.0 ml/min Glucose 103 (60-110) mg/dL POC Glucose 91 (60-110) mg/dL Calcium 8.6 L (8.8-10.8) mg/dL Total Bilirubin 0.4 (0.1-1.5) mg/dL AST 13 (5-40) IU/L ALT 21 (8-54) IU/L Alkaline Phosphatase 58 (40-150) Total Protein 4.9 L (6.0-8.0) g/dL Albumin 3.1 L (3.5-5.0) g/dL Globulin 1.8 L (2.0-3.5) g/dL Albumin/Globulin Ratio 1.7 (1.3-2.8) Med Orders - Current: Current Medications Aspirin (Halfprin) 81 mg PO DAILY [facility] Last Admin: 06/13/17 08:13 Dose: 81 mg Buspirone HCl (Buspar) 10 mg PO BEDTIME [facility] Last Admin: 06/12/17 20:23 Dose: 10 mg Buspirone HCl (Buspar) 5 mg PO DAILY [facility] Last Admin: 06/13/17 08:13 Dose: 5 mg Clonazepam (Klonopin) 0.5 mg PO BID PRN PRN Reason: Anxiety Clonazepam (Klonopin) 0.5 mg PO BEDTIME [facility] Last Admin: 06/12/17 20:23 Dose: 0.5 mg Clonazepam (Klonopin) 0.25 mg PO DAILY [facility] Last Admin: 06/13/17 08:14 Dose: 0.25 mg Cyanocobalamin (Vitamin B12) 1,000 mcg IM Q30D [facility] Last Admin: 06/11/17 23:18 Dose: Not Given Diltiazem HCl (Diltiazem) 20 mg IVPUSH Q3HR PRN PRN Reason: Tachycardia Enoxaparin Sodium (Lovenox) 60 mg SUBCUT BID [facility] Last Admin: 06/13/17 08:14 Dose: 60 mg Metoprolol Tartrate (Lopressor) 50 mg PO TID [facility] Last Admin: 06/13/17 14:28 Dose: Not Given Mirtazapine (Remeron) 30 mg PO BEDTIME [facility] Last Admin: 06/12/17 20:23 Dose: 30 mg Mycophenolate Mofetil (Cellcept) 500 mg PO BID [facility] Last Admin: 06/13/17 08:13 Dose: 500 mg Non-Formulary Medication (Ergocalciferol (Vitamin D2)) 50,000 unit PO Q7D [facility] Last Admin: 06/11/17 22:43 Dose: Not Given Omeprazole (Omeprazole) 40 mg PO ACBREAKFAST [facility] Last Admin: 06/13/17 06:30 Dose: 40 mg Ondansetron HCl (Zofran) 4 mg IVPUSH Q4H PRN PRN Reason: Nausea Last Admin: 06/12/17 22:52 Dose: 4 mg Ondansetron HCl (Zofran Odt) 8 mg PO TID PRN PRN Reason: Nausea Tpn Per Patient 1 each IVPUSH DAILY@1999 [facility] Last Admin: 06/12/17 19:57 Dose: 1 each Melatonin 5 Mg 1 each PO BEDTIME [facility] Last Admin: 06/12/17 20:28 Dose: 1 each (Levomefolate Calcium [L- Methylfolate Calcium ] 7.5 Mg) 1 each PO DAILY [facility] Last Admin: 06/13/17 08:16 Dose: 1 each Align 4 Mg 1 each PO DAILY [facility] Last Admin: 06/13/17 08:17 Dose: 1 each Prednisone (Prednisone) 4 mg PO DAILY [facility] Last Admin: 06/13/17 08:15 Dose: 4 mg Sodium Chloride (Saline Flush) 10 ml FLUSH ASDIRECTED PRN PRN Reason: Keep Vein Open Sodium Chloride (Saline Flush) 2.5 ml FLUSH ASDIRECTED PRN PRN Reason: Keep Vein Open Valacyclovir HCl (Valtrex) 1,000 mg PO BID PRN PRN Reason: COLD SORES Warfarin Sodium (Coumadin) 5 mg PO DAILY@1400 [facility] Last Admin: 06/13/17 13:45 Dose: 5 mg Discontinued Medications Buspirone HCl (Buspar) Confirm Administered Dose 10 mg .ROUTE .STK-MED ONE Stop: 06/12/17 00:21 Last Admin: 06/12/17 01:30 Dose: Not Given Clonazepam (Klonopin) 1 mg PO BEDTIME [facility] Last Admin: 06/11/17 22:39 Dose: 0.5 mg Clonazepam (Klonopin) Confirm Administered Dose 1 mg .ROUTE .STK-MED ONE Stop: 06/11/17 22:39 Last Admin: 06/11/17 22:44 Dose: Not Given Clotrimazole (Mycelex) 10 mg PO 5XDAY [facility] Last Admin: 06/12/17 11:32 Dose: Not Given Cyanocobalamin (Vitamin B12) Confirm Administered Dose 1,000 mcg .ROUTE .STK- MED ONE Stop: 06/11/17 22:49 Last Admin: 06/11/17 23:00 Dose: Not Given Diltiazem HCl (Diltiazem) 10 mg IVPUSH ONETIME ONE Stop: 06/11/17 17:48 Last Admin: 06/11/17 19:18 Dose: Not Given Diphenhydramine HCl (Benadryl) 25 mg IVPUSH ONETIME ONE Stop: 06/12/17 17:07 Last Admin: 06/12/17 17:15 Dose: 25 mg Enoxaparin Sodium (Lovenox) 60 mg SUBCUT BID ONE Stop: 06/12/17 19:10 Last Admin: 06/12/17 20:46 Dose: Not Given Sodium Chloride (Normal Saline) 1,000 mls @ 1,000 mls/hr IV .Bolus ONE Stop: 06/11/17 18:46 Last Admin: 06/11/17 18:00 Dose: 1,000 mls/hr Magnesium Sulfate 2 gm/ Premix 50 mls @ 50 mls/hr IV ONETIME ONE Stop: 06/11/17 18:46 Last Admin: 06/11/17 19:16 Dose: 50 mls/hr Iopamidol (Isovue Multipack-370 (76%)) 50 ml IVPUSH ONETIME STA Stop: 06/12/17 19:18 Last Admin: 06/12/17 19:18 Dose: 50 ml Methylprednisolone Sodium Succinate (Solu-Medrol) 125 mg IVPUSH ONETIME ONE Stop: 06/12/17 17:06 Last Admin: 06/12/17 17:15 Dose: 125 mg Metoprolol Tartrate (Lopressor) 25 mg PO Q12HR [facility] Last Admin: 06/12/17 08:19 Dose: 25 mg Metoprolol Tartrate (Lopressor) 25 mg PO ONETIME ONE Stop: 06/12/17 09:51 Last Admin: 06/12/17 10:01 Dose: 25 mg Metoprolol Tartrate (Lopressor) 50 mg PO Q12HR [facility] Mirtazapine (Remeron) Confirm Administered Dose 30 mg .ROUTE .STK-MED ONE Stop: 06/11/17 22:49 Last Admin: 06/11/17 22:56 Dose: Not Given Mycophenolate Mofetil (Cellcept) Confirm Administered Dose 500 mg .ROUTE .STK- MED ONE Stop: 06/11/17 22:55 Last Admin: 06/11/17 23:00 Dose: Not Given Non-Formulary Medication (Bifidobacterium Infantis [Align]) 4 mg PO DAILY [facility] Non-Formulary Medication (Levomefolate Calcium [L-Methylfolate Calcium]) 7.5 mg PO DAILY [facility] Warfarin Sodium (Coumadin Ask) 1 each PO ONETIME ONE Stop: 06/13/17 09:55 Last Admin: 06/13/17 11:04 Dose: Not Given - Exam General: Alert, Oriented HEENT: Pupils Equal, Pupils Reactive Neck: Supple Lungs: Clear to Auscultation Cardiovascular: Regular Rate, Regular Rhythm GI/Abdominal Exam: Normal Bowel Sounds (Female) Exam: Normal External Exam Back Exam: Normal Inspection Extremities: Normal Inspection EKG INTERPRETATION Rhythm: NSR - Problem List Review Problem List Initiated/Reviewed/Updated: Yes - My Orders Last 24 Hours: My Active Orders 06/12/17 17:03 CTA Chest W WO Contrast [Ang Chest] [CT] Stat - Plan Plan:: 31F hx crohn disease, [employer] vasculitis, 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 1. new onset Afib now concerted, will repeat echo during SR, continue metoprolol 50 BID. CTA was negative for PE. 2. possible thrombus on RA with catheter, discussed the irsk of bleeding from crohn disease with GI from [facility] (Dr. Calix), she mentioned that the crohn disease that she had was perianal type and it was very stable, no risk of bleeding. Will continue ATC with coumadin, will repeat VIVIANA as outpatient.
--- NOTE | 2017-06-13 15:35 | CT ---
EXAM DATE: 06/11/17 PATIENT'S AGE: 31 Patient: DESIRAE GAONA Facility: [place], [place] Site . Site : 1985 Study: CT Chest Angio [id number] PE-06/12/2017 7:28:31 PM Ordering Physician: Daphnie Hill Final Report: INDICATION: Shortness of breath. Rule out pulmonary embolism. COMPARISON: Plain films [address] chest 10 November 2013 and 10 November 2012. TECHNIQUE: 50 mL [id number] IV contrast with pulmonary arterial phase imaging. FINDINGS: Adequate bolus timing. Appropriate opacification of pulmonary arterial vascularity with no pulmonary embolism filling defect. Caliber of the pulmonary arteries is normal. No right heart strain finding. Band of high attenuation in the subpleural posterior right hemithorax runs obliquely from posterior midlung to inferior post lateral lung and costophrenic angle and may be related to prior chest tube is associated dystrophic mineralization. No pathologic adenopathy in the mediastinal or cash. Resolved previous small pulmonary nodules in the right middle lobe although some scarring or atelectasis may partially obscure previous findings. Band of scar atelectasis in the medial right upper lobe and injury extends into the right middle lobe or there is an accessory fissure. Small stable ill-defined 5 mm nodule posterior lingula. Small ill-defined pulmonary nodule anterior left lower lobe unchanged. No focal consolidation for acute pneumonia. Best appreciated on the radiation control health physicist image there is stippled high dense foci along the margins of the lower thoracic and lumbar spine out of the field of view inferiorly. Thoracotomy rib changes on the right. Thoracotomy changes appear chronic. Right jugular central venous catheter tip lower superior vena cava. Left-sided tunneled catheter from the left flank out of the field of view inferiorly entering left subclavian vein and extending to the right atrium. Small amount of perihepatic ascites. Small amount of perisplenic ascites. IMPRESSION: 1. No pulmonary embolism. 2. High attenuation of presumed paraspinal lymph nodes in the lower thoracic and lumbar spine. Query history of lymphangiogram. 3. Ascites in the visualized abdomen. Clinical correlation recommended. Apparent tunneled catheter from the left flank into the left subclavian vein may be peritoneal shunt. 4. Thoracotomy changes on the right. 5. Stable pulmonary nodules left lung. Please note that all CT scans at this facility use dose modulation, iterative reconstruction, and/or weight-based dosing when appropriate to reduce radiation dose to as low as reasonably achievable. Dictated by Donavan Newman MD @ Jun 12 2017 7:44PM (Electronic Signature) Report Signed by Proxy. MTDD
--- NOTE | 2017-06-16 15:14 | ECHO ---
EXAM DATE: 06/11/17 PATIENT'S AGE: 31 The echocardiogram report can be seen in this patient's EMR (Electronic Medical Record) in the Reports section. The report has also been scanned into PACS. MAGAN
== END 2017-06-13 15:45 | disposition home or self-care (01) ==
LOC: MW.ICU 17:16
PROVIDERS: ADMIT Internal Medicine; ATTEND Internal Medicine
DX: I48.91 Unspecified atrial fibrillation (principal); F50.9 Eating disorder, unspecified; F41.9 Anxiety disorder, unspecified; F32.9 Major depressive disorder, single episode, unspecified; K50.90 Crohn's disease, unspecified, without complications; Z86.73 Personal history of transient ischemic attack (TIA), and cerebral infarction without residual deficits; Z91.041 Radiographic dye allergy status; Z91.09 Other allergy status, other than to drugs and biological substances; Z79.899 Other long term (current) drug therapy; Z79.82 Long term (current) use of aspirin
CPT/HCPCS: 36415; 71275; 80053; 81001; 82962; 83735; 85025; 85610; 93005; 93306; A9270; J1200; J1650; J2405; J2930; J3475; J7040; Q9967; 71046; 71046-26; 84443; 84484; 96361; 96372; 96374; 96375; G0378; G0379

== ENCOUNTER 2017-06-26 17:28 | Emergency (ER) | payer OTHER ==
[2017-06-26] MEDS ORDERED: Sodium Chloride 0.9% 2.5 ML Syringe FLUSH PRN (17:35)
[2017-06-26] MEDS ORDERED: Sodium Chloride 0.9% 10 ML Syringe FLUSH PRN (17:35)
--- NOTE | 2017-06-26 17:54 | EDM.PDOC ---
ED HPI GENERAL MEDICAL PROBLEM - General Chief Complaint: Neuro Symptoms/Deficits Stated Complaint: TINGLING ON L SIDE OF FACE Time Seen by Provider: 06/26/17 17:31 Source of Information: Reports: Patient History Limitations: Reports: No Limitations - History of Present Illness INITIAL COMMENTS - FREE TEXT/NARRATIVE: History of present illness: []Patient presented with an hour and a half of left-sided lower cheek numbness a stroke code was called. 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 She has an underlying diagnosis of lymphangiomatosis. Patient was also diagnosed with Crohn's disease as a result of a workup for anemia. She has a [place] catheter for TPN and a [place] shunt for ascites. She has had multiple medical problems including a recent diagnosis of A. fib with RVR and frequent pleural effusions in the past requiring thoracentesis secondary to abnormal lymphatic drainage, this has been definitively treated with pleurodesis. She is currently on Coumadin and her INR was 6 two days ago. She has skipped 2 doses of Coumadin and was supposed to start tonight when the symptoms began. Patient has an appointment tomorrow with Dr. Rios for a feeling of "goose bumps in her head". She arrives with no obvious or neurological deficits. Review of systems: As per history of present illness and below otherwise all systems reviewed and negative. Past medical history: As per history of present illness and as reviewed below otherwise noncontributory. Surgical history: As per history of present illness and as reviewed below otherwise noncontributory. Social history: No reported history of drug or alcohol abuse. Family history: As per history of present illness and as reviewed below otherwise noncontributory. Physical exam: General: Well developed, well nourished in NAD HEENT: Atraumatic, normocephalic, pupils reactive, negative for conjunctival pallor or scleral icterus, mucous membranes moist, throat clear, neck supple, nontender, trachea midline. Lungs: Clear to auscultation, breath sounds equal bilaterally, chest nontender. Heart: S1S2, regular, negative for clicks, rubs, or JVD. Abdomen: Soft, nondistended, nontender. Negative for masses or hepatosplenomegaly. Negative for costovertebral tenderness. Pelvis: Stable nontender. Genitourinary: Deferred. Rectal: Deferred. Extremities: Atraumatic, negative for cords or calf pain. Neurovascular unremarkable. Neuro: Awake, alert, oriented. Cranial nerves II through XII unremarkable. Patient has an area corner of her left lip that "feels numb" Cerebellum unremarkable. Motor and sensory unremarkable throughout. Exam nonfocal. Diagnostics: [] Head CT scan read at 18:03 reported negative. ABC is normal, chemistry is normal except magnesium is low at 1.4. INR is low at 1.25. EKG shows normal sinus rhythm she and is not in A. fib monitor. Therapeutics: []1 dose of Lovenox given Impression: []Facial numbness Plan: []Continue Coumadin. Dose tonight follow-up with Dr. Rios as scheduled Definitive disposition and diagnosis as appropriate pending reevaluation and review of above. - Related Data Allergies Allergy/AdvReac Type Severity Reaction Status Date / Time Iodinated Contrast- Oral and Allergy Rash Verified 06/26/17 17:42 IV Dye [Iodinated Contrast Media - IV Dye] iron Allergy Anaphylactic Verified 06/26/17 17:42 Shock Home Meds: Home Meds Ascorbic Acid [Vitamin C] 500 mg PO DAILY 06/11/17 [History] Aspirin [Halfprin] 81 mg PO DAILY 06/11/17 [History] Bifidobacterium Infantis [Align] 4 mg PO DAILY 06/11/17 [History] ClonazePAM [KlonoPIN] 0.5 mg PO BID PRN 06/11/17 [History] Cyanocobalamin (Vitamin B-12) [Vitamin B-12] 1,000 mg IM Q30D 06/11/17 [History] Ergocalciferol (Vitamin D2) [Vitamin D2] 50,000 unit PO WEEKLY 06/11/17 [History ] Ferumoxytol [Feraheme] 510 mg IV DAILY 06/11/17 [History] Levomefolate Calcium [l-Methylfolate Calcium] 7.5 mg PO DAILY 06/11/17 [History] Loperamide [Imodium] 2 mg PO DAILY 06/11/17 [History] Melatonin 5 mg PO BEDTIME 06/11/17 [History] Mirtazapine [Remeron] 30 mg PO BEDTIME 06/11/17 [History] Mycophenolate Mofetil [Cellcept] 500 mg PO BID 06/11/17 [History] Non-Formulary Medication [NF Drug] 1,600 ml IV .TPN DAILY@199906/11/17 [History ] Omeprazole 40 mg PO DAILY 06/11/17 [History] Ondansetron [Zofran Odt] 8 mg PO TID PRN 06/11/17 [History] busPIRone [Buspar] 5 mg PO QAM 06/11/17 [History] busPIRone [Buspar] 10 mg PO BEDTIME 06/11/17 [History] clonazePAM [Klonopin] 0.5 mg PO BEDTIME 06/11/17 [History] predniSONE 4 mg PO DAILY 06/11/17 [History] ClonazePAM [KlonoPIN] 0.25 mg PO DAILY 06/12/17 [History] Warfarin [Coumadin] 5 mg PO DAILY@1400 30 Days #30 tablet 06/13/17 [Rx] Diltiazem HCl [Cardizem] 30 mg PO Q8HR 06/26/17 [History] Past Medical History HEENT History: Reports: Impaired Vision Other HEENT History: Wears contact lenses Cardiovascular History: Reports: None Respiratory History: Reports: Other (See Below) Other Respiratory History: Pleural effusion, Chylothorax Gastrointestinal History: Reports: Inflammatory Bowel Disease, Other (See Below) Other Gastrointestinal History: Chrohn's Disease Genitourinary History: Reports: None SECURITY CHECKER History: Reports: None Musculoskeletal History: Reports: Other (See Below) Other Musculoskeletal History: Low back pain Neurological History: Reports: None Psychiatric History: Reports: Anxiety, Depression Endocrine/Metabolic History: Reports: None Hematologic History: Reports: None Immunologic History: Reports: None Oncologic (Cancer) History: Reports: None Dermatologic History: Reports: None - Infectious Disease History Infectious Disease History: Reports: Shingles - Past Surgical History HEENT Surgical History: Reports: None Cardiovascular Surgical History: Reports: None Respiratory Surgical History: Reports: Thoracentesis, Other (See Below) Female Surgical History: Reports: None Dermatological Surgical History: Reports: None Social & Family History - Family History Family Medical History: Noncontributory - Tobacco Use Smoking Status *Q: Never Smoker Second Hand Smoke Exposure: No - Caffeine Use Caffeine Use: Reports: None - Recreational Drug Use Recreational Drug Use: No ED ROS GENERAL - Review of Systems Review Of Systems: See Below (See history of present illness) ED EXAM, NEURO - Physical Exam Exam: See Below (See history of present illness) Course - Vital Signs Last Recorded V/S: Last Vital Signs Temp 98.0 F 06/26/17 17:42 Pulse 100 06/26/17 17:42 Resp 17 06/26/17 17:42 BP 119/85 06/26/17 17:42 Pulse Ox 98 06/26/17 17:42 - Orders/Labs/Meds Orders: Active Orders 24 hr Category Date Time Status EKG Documentation Completion [RC] STAT Care 06/26/17 17:35 Active Head wo Cont [CT] Stat Exams 06/26/17 17:35 Taken Sodium Chloride 0.9% [Saline Flush] Med 06/26/17 17:35 Active 10 ml FLUSH ASDIRECTED PRN Sodium Chloride 0.9% [Saline Flush] Med 06/26/17 17:35 Active 2.5 ml FLUSH ASDIRECTED PRN Saline Lock Insert [OM.PC] Stat Oth 06/26/17 17:35 Ordered Medication Orders Sodium Chloride (Saline Flush) 10 ml FLUSH ASDIRECTED PRN PRN Reason: Keep Vein Open Sodium Chloride (Saline Flush) 2.5 ml FLUSH ASDIRECTED PRN PRN Reason: Keep Vein Open Labs: Laboratory Tests 06/26/17 06/26/17 06/26/17 Range/Units 17:55 17:55 17:55 WBC 6.10 (4.0-11.0) K/uL RBC 5.19 (4.30-5.90) M/uL Hgb 15.4 (12.0-16.0) g/dL Hct 46.7 H (36.0-46.0) % MCV 90.0 (80.0-98.0) fL MCH 29.7 (27.0-32.0) pg MCHC 33.0 (31.0-37.0) g/dL RDW Std Deviation 48.5 (28.0-62.0) fl RDW Coeff of Bailee 15 (11.0-15.0) % Plt Count 265 (150-400) K/uL MPV 9.60 (7.40-12.00) fL Neut % (Auto) 85.0 H (48.0-80.0) % Lymph % (Auto) 8.4 L (16.0-40.0) % Imperial % (Auto) 5.9 (0.0-15.0) % Eos % (Auto) 0.5 (0.0-7.0) % Baso % (Auto) 0.2 (0.0-1.5) % Neut # (Auto) 5.2 (1.4-5.7) K/uL Lymph # (Auto) 0.5 L (0.6-2.4) K/uL Imperial # (Auto) 0.4 (0.0-0.8) K/uL Eos # (Auto) 0.0 (0.0-0.7) K/uL Baso # (Auto) 0.0 (0.0-0.1) K/uL Nucleated RBC % 0.0 /100WBC Nucleated RBCs # 0 K/uL INR 1.25 APTT 32.0 H (18.6-31.3) SEC Sodium 140 (136-145) mmol/L Potassium 3.9 (3.5-5.1) mmol/L Chloride 106 (98-107) mmol/L Carbon Dioxide 26.9 (21.0-32.0) mmol/L BUN 10 (7.0-18.0) mg/dL Creatinine 0.6 (0.6-1.0) mg/dL Est Cr Clr Drug Dosing 125.30 mL/min Estimated GFR (MDRD) > 60.0 ml/min Glucose 85 (74-106) mg/dL Calcium 8.1 L (8.5-10.1) mg/dL Magnesium 1.4 L (1.5-2.0) mg/dL Total Bilirubin 0.3 (0.2-1.0) mg/dL AST 24 (15-37) IU/L ALT 36 (14-63) IU/L Alkaline Phosphatase 54 (46-116) U/L Troponin I < 0.050 (0.000-0.056) ng/mL Total Protein 5.1 L (6.4-8.2) g/dL Albumin 2.5 L (3.4-5.0) g/dL Globulin 2.6 (2.0-3.5) g/dL Albumin/Globulin Ratio 1.0 L (1.3-2.8) Meds: Medications Generic Name Dose Route Start Last Admin Trade Name Freq PRN Reason Stop Dose Admin Sodium Chloride 10 ml 06/26/17 17:35 Saline Flush FLUSH ASDIRECTED PRN Keep Vein Open Sodium Chloride 2.5 ml 06/26/17 17:35 Saline Flush FLUSH ASDIRECTED PRN Keep Vein Open Discontinued Medications Generic Name Dose Route Start Last Admin Trade Name Freq PRN Reason Stop Dose Admin Enoxaparin Sodium 60 mg 06/26/17 19:03 Lovenox SUBCUT 06/26/17 19:04 ONETIME ONE Departure - Departure Time of Disposition: 18:57 Disposition: Home, Self-Care 01 Condition: Good Clinical Impression: Facial numbness - Discharge Information Referrals: Eran Garnica MD [Primary Care Provider] - Forms: ED Department Discharge Additional Instructions: The following information is given to patients seen in the emergency department who are being discharged to home. This information is to outline your options for follow-up care. We provide all patients seen in our emergency department with a follow-up referral. The need for follow-up, as well as the timing and circumstances, are variable depending upon the specifics of your emergency department visit. If you don't have a primary care physician on staff, we will provide you with a referral. We always advise you to contact your personal physician following an emergency department visit to inform them of the circumstance of the visit and for follow-up with them and/or the need for any referrals to a consulting specialist. The emergency department will also refer you to a specialist when appropriate. This referral assures that you have the opportunity for follow-up care with a specialist. All of these measure are taken in an effort to provide you with optimal care, which includes your follow-up. Under all circumstances we always encourage you to contact your private physician who remains a resource for coordinating your care. When calling for follow-up care, please make the office aware that this follow-up is from your recent emergency room visit. If for any reason you are refused follow-up, please contact the [facility] Emergency Department at and asked to speak to the emergency department charge nurse. Follow-up with Dr. Rios tomorrow as scheduled take her normal Coumadin dose today - My Orders Last 24 Hours: My Active Orders 06/26/17 17:35 EKG Documentation Completion [RC] STAT Head wo Cont [CT] Stat Sodium Chloride 0.9% [Saline Flush] 10 ml FLUSH ASDIRECTED PRN Sodium Chloride 0.9% [Saline Flush] 2.5 ml FLUSH ASDIRECTED PRN Saline Lock Insert [OM.PC] Stat - Assessment/Plan Last 24 Hours: My Active Orders 06/26/17 17:35 EKG Documentation Completion [RC] STAT Head wo Cont [CT] Stat Sodium Chloride 0.9% [Saline Flush] 10 ml FLUSH ASDIRECTED PRN Sodium Chloride 0.9% [Saline Flush] 2.5 ml FLUSH ASDIRECTED PRN Saline Lock Insert [OM.PC] Stat
[2017-06-26 18:30] LABS: CHLORIDE,CL 106 mmol/L (98-107); SODIUM,NA 140 mmol/L (136-145)
[2017-06-26] MEDS ORDERED: Enoxaparin 60 MG/0.6 ML Syringe SUBCUT ONE (19:03)
[2017-06-27 00:13] VITALS: BP 104/74
--- NOTE | 2017-06-27 13:13 | CT ---
EXAM DATE: 06/26/17 PATIENT'S AGE: 31 Patient: DESIRAE GAONA Facility: [place], [place] Site . Site : 1985 Study: CT Head STROKE PROTOCOL [id number]/[id number] 5:46:35 PM Ordering Physician: Jayjay Chowdhury Final Report: INDICATION: Dizzy, Tingling on Left side of face, History of Stroke. CT HEAD WITHOUT CONTRAST TECHNIQUE: Multiple axial CT images were performed through the head without intravenous contrast administration. COMPARISON: 03/29/[address] FINDINGS: No acute intracranial hemorrhage is identified. No extra-axial collections are evident and there is no mass effect or midline shift. Ventricles are normal in size and configuration. There is a small amount of chronic encephalomalacia in the right parietal lobe consistent with an old infarct, similar to the previous exam. Brain parenchyma otherwise appears normal with unremarkable romero-white differentiation. Osseous structures are within normal limits and no fractures are seen. Included portions of the paranasal sinuses and mastoid air cells are normally aerated. IMPRESSION: 1. No acute intracranial abnormality identified. 2. Small chronic infarct in the right parietal lobe. Results were called to Dr. Ro at 6 p.m. on 06/26/2017. IRVIN EDWARDS MD [employer] Dictated by Ang Edwards MD @ 06/26/2017 6:06:46 PM Dictated by: Ang Edwards MD @ 06/26/2017 18:07:08 (Electronic Signature) Report Signed by Proxy. [facility]ITAL[facility]
== END 2017-06-26 19:40 | disposition home or self-care (01) ==
LOC: MW.ED 17:28
DX: R20.0 Anesthesia of skin (principal); Z91.041 Radiographic dye allergy status; Z91.048 Other nonmedicinal substance allergy status; Z79.82 Long term (current) use of aspirin; Z79.899 Other long term (current) drug therapy; Z79.01 Long term (current) use of anticoagulants
CPT/HCPCS: 36415; 70450; 80053; 83735; 84484; 85025; 85610; 85730; 93005; 96372; 99284; J1650; 99285

== ENCOUNTER 2018-11-01 18:02 | Emergency (ER) | payer OTHER ==
[2018-11-01] MEDS ORDERED: Sodium Chloride 0.9% 10 ML Syringe FLUSH PRN (18:14)
[2018-11-01] MEDS ORDERED: Sodium Chloride 0.9% 10 ML SDV IV PRN (18:14)
[2018-11-01] MEDS ORDERED: Sodium Chloride 0.9% 2.5 ML Syringe FLUSH PRN (18:14)
--- NOTE | 2018-11-01 18:36 | CT ---
Indication: Stroke code TECHNIQUE : Noncontrast head CT scan. Comparison head CT 06/26/2017 Findings: Axial noncontrast images through the brain parenchyma demonstrates no acute intracranial hemorrhage or mass. No midline shift. No abnormal extra-axial air or fluid collections. Small area of encephalomalacia in the right parietal lobe again seen. Paranasal sinuses mastoid air cells skull and scalp appear unremarkable. Impression: No acute intracranial hemorrhage or mass. Results called to Dr. López on 11/01/2018 at 6:35 p.m. Please note that all CT scans at this facility use dose modulation, iterative reconstruction, and/or weight-based dosing when appropriate to reduce radiation dose to as low as reasonably achievable. Dictated by Fatimah Moffett MD @ Nov 01 2018 6:31PM Signed by Dr. Fatimah Moffett @ Nov 01 2018 6:36PM
[2018-11-01 19:02] LABS: CHLORIDE,CL 108 mmol/L (98-107); SODIUM,NA 140 mmol/L (136-145)
--- NOTE | 2018-11-01 19:21 | EDM.PDOC ---
ED HPI GENERAL MEDICAL PROBLEM - General Chief Complaint: ENT Problem Stated Complaint: TROUBLE SWALLOWING Time Seen by Provider: 11/01/18 18:10 Source of Information: Reports: Patient History Limitations: Reports: No Limitations - History of Present Illness INITIAL COMMENTS - FREE TEXT/NARRATIVE: HISTORY AND PHYSICAL: History of present illness: Patient is a 33-year-old female presents to the ED with complaint of difficulty swallowing. Patient has a history of CVA, stroke code was called. She states it started 2 days ago, was coming and going and states today it was worse. She is able to swallow food and liquids but states she has to think about it and every time she swallows feels like she is going to choke. She initially had trouble with solids then progressed to liquids and her saliva. She is able to swallow every time. She denies any pain. She denies headache, visual changes, fevers, chills, sore throat, oropharyngeal swelling, hoarseness, mouth tingling, chest pain, shortness of breath, weakness. CVA in 2016 secondary to a vascular disorder. Also has a history of atrial fibrillation. She follows with Dr. Rios for MRIs every 6 months [address] Pittman. NIH score is 0. Review of systems: As per history of present illness and below otherwise all systems reviewed and negative. Past medical history: As per history of present illness and as reviewed below otherwise noncontributory. Surgical history: As per history of present illness and as reviewed below otherwise noncontributory. Social history: No reported history of drug or alcohol abuse. Family history: As per history of present illness and as reviewed below otherwise noncontributory. Physical exam: General: Patient sitting comfortably in no acute distress and nontoxic appearing. Patient is speaking clearly. HEENT: Atraumatic, normocephalic, pupils reactive, negative for conjunctival pallor or scleral icterus, mucous membranes moist, throat clear, neck supple, nontender, trachea midline. No meningeal signs. No oropharyngeal swelling. No cervical lymphadenopathy. Lungs: Clear to auscultation, breath sounds equal bilaterally, chest nontender. Heart: S1S2, regular, negative for clicks, rubs, or overt murmur. Abdomen: Soft, nondistended, nontender. Negative for masses or hepatosplenomegaly. Negative for costovertebral tenderness. No rigidity, rebound , guarding. Pelvis: Stable nontender. Genitourinary: Deferred. Rectal: Deferred. Extremities: Atraumatic, negative for cords or calf pain. Neurovascular unremarkable. Neuro: Awake, alert, oriented. Cranial nerves II through XII unremarkable. Cerebellum unremarkable. Motor and sensory unremarkable throughout. Exam nonfocal. Notes: Discussed with patient admitting for observation which she declines at this time. Diagnostics: Head CT, CBC, CMP, INR, PTT, TSH Therapeutics: None Prescriptions: None Impression: Dysphagia Plan: 1. Follow up with primary care provider and neurology 2. Return to ED as needed as discussed Definitive disposition and diagnosis as appropriate pending reevaluation and review of above. - Related Data Allergies Allergy/AdvReac Type Severity Reaction Status Date / Time Iodinated Contrast- Oral and Allergy Rash Verified 06/26/17 17:42 IV Dye [Iodinated Contrast Media - IV Dye] iron Allergy Anaphylactic Verified 06/26/17 17:42 Shock Home Meds: Home Meds Ascorbic Acid [Vitamin C] 500 mg PO DAILY 06/11/17 [History] Aspirin [Halfprin] 81 mg PO DAILY 06/11/17 [History] Bifidobacterium Infantis [Align] 4 mg PO DAILY 06/11/17 [History] Cyanocobalamin (Vitamin B-12) [Vitamin B-12] 1,000 mg IM Q30D 06/11/17 [History] Ferumoxytol [Feraheme] 510 mg IV ASDIRECTED 06/11/17 [History] Levomefolate Calcium [l-Methylfolate Calcium] 7.5 mg PO DAILY 06/11/17 [History] Loperamide [Imodium] 2 mg PO DAILY 06/11/17 [History] Melatonin 5 mg PO BEDTIME 06/11/17 [History] Mirtazapine [Remeron] 30 mg PO BEDTIME 06/11/17 [History] Mycophenolate Mofetil [Cellcept] 500 mg PO BID 06/11/17 [History] Ondansetron [Zofran Odt] 8 mg PO TID PRN 06/11/17 [History] clonazePAM [Klonopin] 0.25 mg PO BID 06/11/17 [History] ALPRAZolam [Alprazolam] 0.5 mg PO ASDIRECTED PRN 11/01/18 [History] Levothyroxine [Synthroid] 50 mg PO BID 11/01/18 [History] Past Medical History HEENT History: Reports: Impaired Vision Other HEENT History: Wears contact lenses Cardiovascular History: Reports: None Respiratory History: Reports: Other (See Below) Other Respiratory History: Pleural effusion, Chylothorax Gastrointestinal History: Reports: Inflammatory Bowel Disease, Other (See Below) Other Gastrointestinal History: Chrohn's Disease Genitourinary History: Reports: None [employer]ILROAD [employer]ECTIVE History: Reports: None Musculoskeletal History: Reports: Other (See Below) Other Musculoskeletal History: Low back pain Neurological History: Reports: None Psychiatric History: Reports: Anxiety, Depression Endocrine/Metabolic History: Reports: None Hematologic History: Reports: None Immunologic History: Reports: None Oncologic (Cancer) History: Reports: None Dermatologic History: Reports: None - Infectious Disease History Infectious Disease History: Reports: Shingles - Past Surgical History HEENT Surgical History: Reports: None Cardiovascular Surgical History: Reports: None Respiratory Surgical History: Reports: Thoracentesis, Other (See Below) Female Surgical History: Reports: None Dermatological Surgical History: Reports: None Social & Family History - Family History Family Medical History: Noncontributory - Caffeine Use Caffeine Use: Reports: None ED ROS ENT - Review of Systems Review Of Systems: ROS reveals no pertinent complaints other than HPI. ED EXAM, ENT - Physical Exam Exam: See Below (see dictation) Course - Vital Signs Last Recorded V/S: Last Vital Signs Temp 97.6 F 11/01/18 18:08 Pulse 111 H 11/01/18 18:08 Resp 18 11/01/18 18:08 BP 120/86 11/01/18 18:08 Pulse Ox 99 11/01/18 18:08 - Orders/Labs/Meds Orders: Active Orders 24 hr Category Date Time Status Assess Neurological Status [RC] ASDIRECTED Care 11/01/18 18:14 Active Bedrest [RC] ASDIRECTED Care 11/01/18 18:14 Active Cardiac Monitoring [RC] . DIRECTED Care 11/01/18 18:14 Active EKG Documentation Completion [RC] STAT Care 11/01/18 18:14 Active Height and Weight [RC] UPON Care 11/01/18 18:14 Active Initiate Acute Stroke Protocol [RC] STAT Care 11/01/18 18:14 Active NIH Stroke Scale [RC] ASDIRECTED Care 11/01/18 18:14 Active Nursing Bedside Swallow Screen [RC] ASDIRECTED Care 11/01/18 18:14 Active Oxygen Therapy [RC] ASDIRECTED Care 11/01/18 18:14 Active Stroke Education, General [RC] Click to Edit Care 11/01/18 18:14 Active Vital Signs [] Q15M Care 11/01/18 18:14 Active Sodium Chloride 0.9% [Normal Saline] Med 11/01/18 18:14 Active 10 ml IV ASDIRECTED PRN Sodium Chloride 0.9% [Saline Flush] Med 11/01/18 18:14 Active 10 ml FLUSH ASDIRECTED PRN Sodium Chloride 0.9% [Saline Flush] Med 11/01/18 18:14 Active 2.5 ml FLUSH ASDIRECTED PRN Peripheral IV Insertion Adult [OM.PC] Stat Oth 11/01/18 18:14 Ordered Peripheral IV Insertion Adult [OM.PC] Stat Ot 11/01/18 18:14 Ordered Medication Orders Sodium Chloride (Saline Flush) 10 ml FLUSH ASDIRECTED PRN PRN Reason: Keep Vein Open Last Admin: 11/01/18 19:19 Dose: 10 ml Sodium Chloride (Saline Flush) 2.5 ml FLUSH ASDIRECTED PRN PRN Reason: Keep Vein Open Last Admin: 11/01/18 19:19 Dose: 2.5 ml Sodium Chloride (Normal Saline) 10 ml IV ASDIRECTED PRN PRN Reason: IV Use Last Admin: 11/01/18 19:19 Dose: 10 ml Labs: Laboratory Tests 11/01/18 11/01/18 11/01/18 Range/Units 18:15 18:15 18:15 WBC 4.04 (4.0-11.0) K/uL RBC 5.24 (4.30-5.90) M/uL Hgb 12.5 (12.0-16.0) g/dL Hct 40.8 (36.0-46.0) % MCV 77.9 L (80.0-98.0) fL MCH 23.9 L (27.0-32.0) pg MCHC 30.6 L (31.0-37.0) g/dL RDW Std Deviation 61.4 (28.0-62.0) fl RDW Coeff of Bailee 22 H (11.0-15.0) % Plt Count 276 (150-400) K/uL MPV 9.30 (7.40-12.00) fL Neut % (Auto) 60.0 (48.0-80.0) % Lymph % (Auto) 27.5 (16.0-40.0) % Wetzel % (Auto) 10.1 (0.0-15.0) % Eos % (Auto) 1.7 (0.0-7.0) % Baso % (Auto) 0.7 (0.0-1.5) % Neut # (Auto) 2.4 (1.4-5.7) K/uL Lymph # (Auto) 1.1 (0.6-2.4) K/uL Wetzel # (Auto) 0.4 (0.0-0.8) K/uL Eos # (Auto) 0.1 (0.0-0.7) K/uL Baso # (Auto) 0.0 (0.0-0.1) K/uL Nucleated RBC % 0.0 /100WBC Nucleated RBCs # 0 K/uL INR 1.00 APTT 27.4 (18.6-31.3) SEC Sodium 140 (136-145) mmol/L Potassium 3.7 (3.5-5.1) mmol/L Chloride 108 H (98-107) mmol/L Carbon Dioxide 25.1 (21.0-32.0) mmol/L BUN 10 (7.0-18.0) mg/dL Creatinine 0.7 (0.6-1.0) mg/dL Est Cr Clr Drug Dosing TNP Estimated GFR (MDRD) > 60.0 ml/min Glucose 103 (74-106) mg/dL Calcium 8.0 L (8.5-10.1) mg/dL Total Bilirubin 0.2 (0.2-1.0) mg/dL AST 19 (15-37) IU/L ALT 15 (14-63) IU/L Alkaline Phosphatase 57 (46-116) U/L Troponin I < 0.050 (0.000-0.056) ng/mL Total Protein 5.1 L (6.4-8.2) g/dL Albumin 2.4 L (3.4-5.0) g/dL Globulin 2.7 (2.6-4.0) g/dL Albumin/Globulin Ratio 0.9 (0.9-1.6) TSH 3rd Generation 2.95 (0.36-3.74) uIU/mL Meds: Medications Generic Name Dose Route Start Last Admin Trade Name Freq PRN Reason Stop Dose Admin Sodium Chloride 10 ml 11/01/18 18:14 11/01/18 19:19 Saline Flush FLUSH 10 ml ASDIRECTED PRN Administration Keep Vein Open Sodium Chloride 2.5 ml 11/01/18 18:14 11/01/18 19:19 Saline Flush FLUSH 2.5 ml ASDIRECTED PRN Administration Keep Vein Open Sodium Chloride 10 ml 11/01/18 18:14 11/01/18 19:19 Normal Saline IV 10 ml ASDIRECTED PRN Administration IV Use Departure - Departure Time of Disposition: 19:20 Disposition: Home, Self-Care 01 Condition: Good Clinical Impression: Dysphagia - Discharge Information Instructions: Dysphagia Referrals: Eran Garnica MD [Primary Care Provider] - Forms: ED Department Discharge Additional Instructions: The following information is given to patients seen in the emergency department who are being discharged to home. This information is to outline your options for follow-up care. We provide all patients seen in our emergency department with a follow-up referral. The need for follow-up, as well as the timing and circumstances, are variable depending upon the specifics of your emergency department visit. If you don't have a primary care physician on staff, we will provide you with a referral. We always advise you to contact your personal physician following an emergency department visit to inform them of the circumstance of the visit and for follow-up with them and/or the need for any referrals to a consulting specialist. The emergency department will also refer you to a specialist when appropriate. This referral assures that you have the opportunity for follow-up care with a specialist. All of these measure are taken in an effort to provide you with optimal care, which includes your follow-up. Under all circumstances we always encourage you to contact your private physician who remains a resource for coordinating your care. When calling for follow-up care, please make the office aware that this follow-up is from your recent emergency room visit. If for any reason you are refused follow-up, please contact the [facility] Emergency Department at and asked to speak to the emergency department charge nurseMinnie Wood [facility] [address] [place] [address] [facility] [address] [place] [address] 1. Follow up with primary care provider and neurology 2. Return to ED as needed as discussed - My Orders Last 24 Hours: My Active Orders 11/01/18 18:14 Assess Neurological Status [RC] ASDIRECTED Bedrest [RC] ASDIRECTED Cardiac Monitoring [RC] . DIRECTED EKG Documentation Completion [RC] STAT Height and Weight [RC] UPON Initiate Acute Stroke Protocol [RC] STAT NIH Stroke Scale [RC] ASDIRECTED Nursing Bedside Swallow Screen [RC] ASDIRECTED Oxygen Therapy [RC] ASDIRECTED Stroke Education, General [RC] Click to Edit Vital Signs [RC] Q15M Sodium Chloride 0.9% [Normal Saline] 10 ml IV ASDIRECTED PRN Sodium Chloride 0.9% [Saline Flush] 10 ml FLUSH ASDIRECTED PRN Sodium Chloride 0.9% [Saline Flush] 2.5 ml FLUSH ASDIRECTED PRN Peripheral IV Insertion Adult [OM.PC] Stat Peripheral IV Insertion Adult [OM.PC] Stat - Assessment/Plan Last 24 Hours: My Active Orders 11/01/18 18:14 Assess Neurological Status [RC] ASDIRECTED Bedrest [RC] ASDIRECTED Cardiac Monitoring [RC] . DIRECTED EKG Documentation Completion [RC] STAT Height and Weight [RC] UPON Initiate Acute Stroke Protocol [RC] STAT NIH Stroke Scale [RC] ASDIRECTED Nursing Bedside Swallow Screen [RC] ASDIRECTED Oxygen Therapy [RC] ASDIRECTED Stroke Education, General [RC] Click to Edit Vital Signs [RC] Q15M Sodium Chloride 0.9% [Normal Saline] 10 ml IV ASDIRECTED PRN Sodium Chloride 0.9% [Saline Flush] 10 ml FLUSH ASDIRECTED PRN Sodium Chloride 0.9% [Saline Flush] 2.5 ml FLUSH ASDIRECTED PRN Peripheral IV Insertion Adult [OM.PC] Stat Peripheral IV Insertion Adult [OM.PC] Stat
[2018-11-01 20:51] VITALS: BP 112/77
== END 2018-11-01 19:31 | disposition home or self-care (01) ==
LOC: MW.ED 18:02
DX: R13.10 Dysphagia, unspecified (principal); F41.9 Anxiety disorder, unspecified; F32.9 Major depressive disorder, single episode, unspecified; K50.90 Crohn's disease, unspecified, without complications; Z91.041 Radiographic dye allergy status; Z91.09 Other allergy status, other than to drugs and biological substances; Z79.82 Long term (current) use of aspirin; Z79.899 Other long term (current) drug therapy
CPT/HCPCS: 70450; 80053; 84443; 84484; 85025; 85610; 85730; 93005; 99284; J7050

== ENCOUNTER 2019-07-16 14:30 | Emergency (ER) | payer OTHER ==
--- NOTE | 2019-07-16 15:27 | CR ---
Chest: Portable view of the chest was obtained. Comparison: Comparison: Prior chest x-ray of 06/24/19. PICC line is noted. Tip is difficult to see but felt to lie within the right atria. Left-sided catheter or wire is noted which terminates within the right atrium but tip is not well seen. Parenchymal density noted within the left base. Uncertain how much of this represents parenchymal consolidation versus pleural effusion. Slight atelectasis within the right base is seen. Heart size is not enlarged. Bony structures are grossly intact. Impression: 1. Increasing density from prior study within the left base. As mentioned above, uncertain how much of this represents parenchymal consolidation versus pleural effusion. Parenchymal consolidation could represent pneumonia if patient has infectious symptoms. 2. Slight atelectasis is believed to be present within the right base. 3. Tip of PICC line not well seen but appears to lie within the right atria. 3. Left-sided catheter or wire also appears to project into the right atria. Diagnostic code #3 This report was dictated in MDT
[2019-07-16 15:33] LABS: BLOOD UREA NITROGEN,BUN 14 mg/dL (7.0-18.0); CARBON DIOXIDE,CO2 26.1 mmol/L (21.0-32.0); CHLORIDE,CL 105 mmol/L (98-107); GLUCOSE RANDOM 95 mg/dL (74-106); POTASSIUM,K 3.9 mmol/L (3.5-5.1); SODIUM,NA 140 mmol/L (136-145)
--- NOTE | 2019-07-16 15:55 | EDM.PDOC ---
ED HPI GENERAL MEDICAL PROBLEM - General Chief Complaint: Fever Stated Complaint: FEVER/CHILLS Time Seen by Provider: 07/16/19 14:35 Source of Information: Reports: Patient History Limitations: Reports: No Limitations - History of Present Illness INITIAL COMMENTS - FREE TEXT/NARRATIVE: This is a 33-year-old female presents the emergency room with a chief complaint of shortness of breath and a fever. Patient was at her oncology clinic and was sent to the emergency room for a fever. Patient states that her cough is getting better but she still has a persistent cough. Patient tested negative for Cov 19 1 week ago. Has a history of being on chemotherapy and is immunocompromised. Duration: Week(s):, Intermittent Location: Reports: Chest Severity: Mild Improves with: Reports: None Worsens with: Reports: None Associated Symptoms: Reports: Cough, Fever/Chills - Related Data Allergies Allergy/AdvReac Type Severity Reaction Status Date / Time Iodinated Contrast Media Allergy Rash Verified 07/16/19 14:40 [Iodinated Contrast Media - IV Dye] iron Allergy Anaphylactic Verified 07/16/19 14:40 Shock Home Meds: Home Meds Aspirin [Halfprin] 81 mg PO DAILY 06/11/17 [History] Bifidobacterium Infantis [Align] 4 mg PO DAILY 06/11/17 [History] Ferumoxytol [Feraheme] 510 mg IV ASDIRECTED 06/11/17 [History] Ondansetron [Zofran Odt] 8 mg PO TID PRN 06/11/17 [History] clonazePAM [Klonopin] 0.25 mg PO BID 06/11/17 [History] ALPRAZolam [Alprazolam] 0.5 mg PO ASDIRECTED PRN 11/01/18 [History] Enoxaparin Sodium 60 mg SQ BID 07/16/19 [History] Omeprazole 40 mg PO DAILY 07/16/19 [History] Spironolactone [Aldactone] 25 mg PO BID 07/16/19 [History] Past Medical History HEENT History: Reports: Impaired Vision Other HEENT History: Wears contact lenses Cardiovascular History: Reports: None Respiratory History: Reports: Other (See Below) Other Respiratory History: Pleural effusion, Chylothorax Gastrointestinal History: Reports: Inflammatory Bowel Disease, Other (See Below) Other Gastrointestinal History: Chrohn's Disease Genitourinary History: Reports: 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 Musculoskeletal History: Reports: Other (See Below) Other Musculoskeletal History: Low back pain Neurological History: Reports: None Psychiatric History: Reports: Anxiety, Depression Endocrine/Metabolic History: Reports: None Hematologic History: Reports: None Immunologic History: Reports: None Oncologic (Cancer) History: Reports: None Dermatologic History: Reports: None - Infectious Disease History Infectious Disease History: Reports: Shingles - Past Surgical History HEENT Surgical History: Reports: None Cardiovascular Surgical History: Reports: None Respiratory Surgical History: Reports: Thoracentesis, Other (See Below) Female Surgical History: Reports: None Dermatological Surgical History: Reports: None Social & Family History - Family History Family Medical History: Noncontributory - Caffeine Use Caffeine Use: Reports: None ED ROS GENERAL - Review of Systems Review Of Systems: See Below Constitutional: Reports: No Symptoms, Fever HEENT: Reports: No Symptoms Respiratory: Reports: No Symptoms Cardiovascular: Reports: No Symptoms Endocrine: Reports: No Symptoms GI/Abdominal: Reports: No Symptoms : Reports: No Symptoms Musculoskeletal: Reports: No Symptoms Skin: Reports: No Symptoms Neurological: Reports: No Symptoms Psychiatric: Reports: No Symptoms Hematologic/Lymphatic: Reports: No Symptoms Immunologic: Reports: No Symptoms ED EXAM, GENERAL - Physical Exam Exam: See Below Exam Limited By: No Limitations General Appearance: Alert, WD/WN, No Apparent Distress Eye Exam: Bilateral Eye: Normal Inspection, Nystagmus Nose: Normal Inspection, Normal Mucosa, Nasal Flaring Throat/Mouth: Normal Lips, Normal Teeth Head: Atraumatic, Normocephalic Neck: Normal Inspection, Supple Respiratory/Chest: No Respiratory Distress, Lungs Clear, No Accessory Muscle Use , Chest Non-Tender Course - Vital Signs Last Recorded V/S: Last Vital Signs Temp 98.2 F 07/16/19 14:36 Pulse 124 H 07/16/19 14:36 Resp 20 07/16/19 14:36 BP 115/77 07/16/19 14:36 Pulse Ox 96 07/16/19 14:36 - Orders/Labs/Meds Orders: Active Orders 24 hr Category Date Time Status Chest 1V Frontal [CR] Stat Exams 07/16/19 14:43 Ordered CBC WITH AUTO DIFF [HEME] Stat Lab 07/16/19 14:43 Ordered CORONAVIRUS COVID-19 PCR PHL [MREF] Stat Lab 07/16/19 14:43 Ordered INFLUENZA A+B AG SCREEN [RM] Stat Lab 07/16/19 14:43 Ordered Isolation [COMM] Routine Oth 07/16/19 14:44 Active Departure - Departure Time of Disposition: 15:55 Disposition: Home, Self-Care 01 Condition: Good Clinical Impression: Febrile illness - Discharge Information Instructions: Fever, Adult, [id number] Referrals: Eran Garnica MD [Primary Care Provider] - Additional Instructions: 1. Follow-up with the primary care physician II. Spinal problems Stay home and quarantine until results are known Sepsis Event Note - Evaluation Sepsis Screening Result: Possible Sepsis Risk - Focused Exam Vital Signs: Vital Signs Temp Pulse Resp BP Pulse Ox 07/16/19 14:36 98.2 F 124 H 20 115/77 96 Date Exam was Performed: 07/16/19 Time Exam was Performed: 14:51 - My Orders Last 24 Hours: My Active Orders 07/16/19 14:43 Chest 1V Frontal [CR] Stat CBC WITH AUTO DIFF [HEME] Stat CORONAVIRUS COVID-19 PCR PHL [MREF] Stat INFLUENZA A+B AG SCREEN [RM] Stat 07/16/19 14:44 Isolation [COMM] Routine - Assessment/Plan Last 24 Hours: My Active Orders 07/16/19 14:43 Chest 1V Frontal [CR] Stat CBC WITH AUTO DIFF [HEME] Stat CORONAVIRUS COVID-19 PCR PHL [MREF] Stat INFLUENZA A+B AG SCREEN [RM] Stat 07/16/19 14:44 Isolation [COMM] Routine
[2019-07-16] MEDS ORDERED: Heparin Sodium 100 Units/ML 3 ML Syringe FLUSH STA (16:17)
[2019-07-16 17:02] VITALS: BP 114/72; PULSE 105
== END 2019-07-16 16:46 | disposition home or self-care (01) ==
LOC: MW.ED 14:30
DX: R50.9 Fever, unspecified (principal); F41.9 Anxiety disorder, unspecified; F32.9 Major depressive disorder, single episode, unspecified; Z91.041 Radiographic dye allergy status; Z88.8 Allergy status to other drugs, medicaments and biological substances; Z79.82 Long term (current) use of aspirin; Z79.899 Other long term (current) drug therapy
CPT/HCPCS: 36415; 71045; 80053; 85025; 87804; 99285; J1642; U0001

== ENCOUNTER 2019-09-04 10:34 | Emergency (ER) | payer OTHER ==
[2019-09-04] MEDS ORDERED: Sodium Chloride 0.9% 1,000 ML IV ONE (12:06)
--- NOTE | 2019-09-04 12:35 | CR ---
Chest: 2 views of the chest were obtained. Comparison: Prior chest x-ray of 08/11/19. Consolidation within the left lung base is seen. Uncertain how much of this represents parenchymal density versus pleural effusion. Findings have slightly increased from previous study. Right-sided PICC line is seen. Left-sided catheter is also noted. Heart is enlarged. Bony structures are grossly intact. Impression: 1. Slight increasing consolidation of the left lung base. As mentioned above, uncertain how much of the disc represents pleural effusion versus parenchymal density. This parenchymal density could represent mass, pneumonia as well as atelectasis or a combination of all 3. 2. Cardiomegaly versus enlarged heart from pericardial effusion. 3. PICC line and left-sided central catheter is noted. Diagnostic code #3 This report was dictated in MDT
--- NOTE | 2019-09-04 12:36 | EDM.PDOC ---
ED HPI GENERAL MEDICAL PROBLEM - General Chief Complaint: General Stated Complaint: DIZZY/LIGHT HEADED Time Seen by Provider: 09/04/19 12:00 Source of Information: Reports: Patient, Family (I talked with her mother over the phone which was very helpful.) History Limitations: Reports: No Limitations - History of Present Illness INITIAL COMMENTS - FREE TEXT/NARRATIVE: This 34 year old female with a complicated history was admitted to the ED with a chief complaint of SOB and dizziness over the past 24 hours. 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 She is seeing Dr. Carter in [place] for her chemotherapy and TPN. She had been on chemotherapy on and off for the past 6 years. Her last round of chemotherapy was 4 days ago. The mother states that her pulse rate runs 118 to 123 which is normal for her. The patient has had frequent thoracentesis due to fluid. Her last thoracentesis was two weeks ago at which time 2.5 liters was removed from her left chest. The patient states that her albumin, potassium and magnesium is always and needs replacement. The patient states that her purple port can be used for venous access and blood draw. - Related Data Allergies Allergy/AdvReac Type Severity Reaction Status Date / Time Iodinated Contrast Media Allergy Rash Verified 09/04/19 11:25 [Iodinated Contrast Media - IV Dye] iron Allergy Anaphylactic Verified 09/04/19 11:25 Shock metronidazole [From Flagyl] Allergy Cannot Verified 09/04/19 11:25 Remember Home Meds: Home Meds Aspirin [Halfprin] 81 mg PO DAILY 06/11/17 [History] Bifidobacterium Infantis [Align] 4 mg PO DAILY 06/11/17 [History] Ondansetron [Zofran Odt] 8 mg PO TID PRN 06/11/17 [History] clonazePAM [Klonopin] 0.25 mg PO BID 06/11/17 [History] Enoxaparin Sodium 60 mg SQ BID 07/16/19 [History] Ergocalciferol (Vitamin D2) [Vitamin D2] 1.25 mg PO DAILY 09/04/19 [History] Famotidine 20 mg PO DAILY 09/04/19 [History] Folic Acid 1 mg PO DAILY 09/04/19 [History] Furosemide [Lasix] 40 mg PO DAILY 09/04/19 [History] HYDROmorphone [Dilaudid] 2 mg PO Q4H PRN 09/04/19 [History] Melatonin 5 mg PO DAILY 09/04/19 [History] Omeprazole 40 mg PO DAILY 09/04/19 [History] Sennosides [Senna] 8.6 mg PO ASDIRECTED PRN 09/04/19 [History] Thiamine [Vitamin B-1] 100 mg PO DAILY 09/04/19 [History] diphenhydrAMINE [Benadryl] 25 mg PO DAILY 09/04/19 [History] predniSONE [Prednisone] 50 mg PO DAILY 09/04/19 [History] Past Medical History HEENT History: Reports: Impaired Vision Other HEENT History: Wears contact lenses Cardiovascular History: Reports: None Other Cardiovascular History: tachy Respiratory History: Reports: Other (See Below) Other Respiratory History: Pleural effusion, Chylothorax Gastrointestinal History: Reports: Inflammatory Bowel Disease, Other (See Below) Other Gastrointestinal History: Chrohn's Disease Genitourinary History: Reports: None GRAIN PROCESSOR History: Reports: None Musculoskeletal History: Reports: Other (See Below) Other Musculoskeletal History: Low back pain Neurological History: Reports: None Psychiatric History: Reports: Anxiety, Depression Endocrine/Metabolic History: Reports: None Hematologic History: Reports: None Immunologic History: Reports: None Oncologic (Cancer) History: Reports: None Other Oncologic History: small bowel cancer Dermatologic History: Reports: None - Infectious Disease History Infectious Disease History: Reports: None - Past Surgical History HEENT Surgical History: Reports: None Cardiovascular Surgical History: Reports: None Respiratory Surgical History: Reports: Thoracentesis, Other (See Below) Female Surgical History: Reports: None Dermatological Surgical History: Reports: None Social & Family History - Family History Family Medical History: Noncontributory - Tobacco Use Smoking Status *Q: Never Smoker - Caffeine Use Caffeine Use: Reports: None - Recreational Drug Use Recreational Drug Use: No ED ROS GENERAL - Review of Systems Review Of Systems: See Below Constitutional: Reports: Weakness HEENT: Reports: No Symptoms Respiratory: Reports: Shortness of Breath ED EXAM, GENERAL - Physical Exam Exam: See Below Exam Limited By: No Limitations General Appearance: Alert, Lethargic (mild), Mild Distress Eye Exam: Bilateral Eye: EOMI, Normal Inspection, PERRL Ears: Normal External Exam Ear Exam: Bilateral Ear: Auricle Normal, Canal Normal, TM normal Nose: Normal Inspection, Normal Mucosa Throat/Mouth: Normal Inspection, Normal Oropharynx Head: Atraumatic, Normocephalic Neck: Normal Inspection, Supple, Non-Tender Respiratory/Chest: Decreased Breath Sounds (both bases), Rales (both bases.), Other (No acute respiratory distress.). No: Crackles, Rhonchi, Wheezing Cardiovascular: Normal Peripheral Pulses, No Edema, Tachycardia Peripheral Pulses: 3+: Carotid (L), Carotid (R), Femoral (L), Femoral (R), Dorsalis Pedis (L), Dorsalis Pedis (R) GI/Abdominal: Normal Bowel Sounds, Soft, Non-Tender, No Organomegaly, No Mass (Female) Exam: Deferred Rectal (Female) Exam: Deferred Back Exam: Normal Inspection Extremities: Normal Inspection, Normal Range of Motion, Non-Tender, Normal Capillary Refill, Other (right venous cath noted in the arm.) Neurological: Alert, Oriented (times 4), CN II-XII Intact, Normal Reflexes, No Motor/Sensory Deficits Psychiatric: Normal Affect, Normal Mood Skin Exam: Warm, Dry, Intact, Normal Color, No Rash Course - Vital Signs Text/Narrative:: I discussed all of the patients diagnostic test with Dr. Alcaraz in [place]. I asked Dr. Alcaraz if he would like for me to transfuse her a unit or two of blood and he suggested that I wait until she gets to [place]. He has accepted her in transfer at 3:37PM. The patient agrees with the transfer plan. Last Recorded V/S: Last Vital Signs Temp 97.1 F 09/04/19 11:25 Pulse 117 H 09/04/19 15:37 Resp 16 09/04/19 15:37 BP 113/88 09/04/19 15:37 Pulse Ox 94 L 09/04/19 15:37 - Orders/Labs/Meds Orders: Active Orders 24 hr Category Date Time Status Magnesium Sulfate/Water [Magnesium Sulfate in Water Med 09/04/19 14:56 Active Premix] 2 gm Premix Bag 1 bag IV ONETIME Potassium Chloride Riders [KCL 40 MEQ in Water 100 ML] Med 09/04/19 13:11 Active 40 meq Premix Bag 1 bag IV ONETIME Sodium Chloride 0.9% [Normal Saline] 1,000 ml Med 09/04/19 13:30 Active IV ASDIRECTED Medication Orders Potassium Chloride 40 meq/ (Premix) 100 mls @ 25 mls/hr IV ONETIME ONE Stop: 09/04/19 17:10 Last Admin: 09/04/19 13:30 Dose: 25 mls/hr Sodium Chloride (Normal Saline) 1,000 mls @ 25 mls/hr IV ASDIRECTED DEREK Last Admin: 09/04/19 13:33 Dose: 25 mls/hr Magnesium Sulfate 2 gm/ Premix 50 mls @ 50 mls/hr IV ONETIME ONE Stop: 09/04/19 15:55 Labs: Laboratory Tests 09/04/19 09/04/19 Range/Units 12:33 12:33 WBC 9.45 (4.0-11.0) K/uL RBC 2.73 L (4.30-5.90) M/uL Hgb 6.2 L (12.0-16.0) g/dL Hct 20.9 L (36.0-46.0) % MCV 76.6 L (80.0-98.0) fL MCH 22.7 L (27.0-32.0) pg MCHC 29.7 L (31.0-37.0) g/dL RDW Std Deviation 64.9 H (28.0-62.0) fl RDW Coeff of Bailee 24 H (11.0-15.0) % Plt Count 207 (150-400) K/uL MPV 9.30 (7.40-12.00) fL Neut % (Auto) 98.2 H (48.0-80.0) % Lymph % (Auto) 1.3 L (16.0-40.0) % [place] % (Auto) 0.5 (0.0-15.0) % Eos % (Auto) 0.0 (0.0-7.0) % Baso % (Auto) 0.0 (0.0-1.5) % Neut # (Auto) 9.3 H (1.4-5.7) K/uL Lymph # (Auto) 0.1 L (0.6-2.4) K/uL [place] # (Auto) 0.1 (0.0-0.8) K/uL Eos # (Auto) 0.0 (0.0-0.7) K/uL Baso # (Auto) 0.0 (0.0-0.1) K/uL Nucleated RBC % 0.0 /100WBC Nucleated RBCs # 0 K/uL Sodium 131 L (136-145) mmol/L Potassium 2.4 L* (3.5-5.1) mmol/L Chloride 96 L (98-107) mmol/L Carbon Dioxide 31.8 (21.0-32.0) mmol/L BUN 21 H (7.0-18.0) mg/dL Creatinine 0.7 (0.6-1.0) mg/dL Est Cr Clr Drug Dosing 102.81 mL/min Estimated GFR (MDRD) > 60.0 ml/min Glucose 107 H (74-106) mg/dL Calcium 7.2 L (8.5-10.1) mg/dL Magnesium 1.7 L (1.8-2.4) mg/dL Total Bilirubin 0.4 (0.2-1.0) mg/dL AST 45 H (15-37) IU/L ALT 30 (14-63) IU/L Alkaline Phosphatase 208 H (46-116) U/L Total Protein 4.9 L (6.4-8.2) g/dL Albumin 1.5 L (3.4-5.0) g/dL Globulin 3.4 (2.6-4.0) g/dL Albumin/Globulin Ratio 0.4 L (0.9-1.6) Meds: Medications Generic Name Dose Route Start Last Admin Trade Name Freq PRN Reason Stop Dose Admin Potassium Chloride 40 meq/ 100 mls @ 25 mls/hr 09/04/19 13:11 09/04/19 13:30 Premix IV 09/04/19 17:10 25 mls/hr ONETIME ONE Administration Sodium Chloride 1,000 mls @ 25 mls/hr 09/04/19 13:30 09/04/19 13:33 Normal Saline IV 25 mls/hr ASDIRECTED DEREK Administration Magnesium Sulfate 2 gm/ Premix 50 mls @ 50 mls/hr 09/04/19 14:56 IV 09/04/19 15:55 ONETIME ONE Discontinued Medications Generic Name Dose Route Start Last Admin Trade Name Freq PRN Reason Stop Dose Admin Sodium Chloride 1,000 mls @ 1,000 mls/hr 09/04/19 12:06 09/04/19 12:29 Normal Saline IV 09/04/19 13:05 1,000 mls/hr .Bolus ONE Administration Departure - Departure Time of Disposition: 15:44 Disposition: DC/Tfer to Acute Hospital 02 Condition: Fair Clinical Impression: Dehydration, Hypokalemia, Hypomagnesemia, Pleural effusion, Lightheadedness - Discharge Information *PRESCRIPTION DRUG MONITORING PROGRAM REVIEWED*: Yes *COPY OF PRESCRIPTION DRUG MONITORING REPORT IN PATIENT JENNY: Yes Referrals: Eran Garnica MD [Primary Care Provider] - Forms: ED Department Discharge Sepsis Event Note - Evaluation Sepsis Screening Result: No Definite Risk - Focused Exam Vital Signs: Vital Signs Temp Pulse Resp BP Pulse Ox 09/04/19 15:37 117 H 16 113/88 94 L 09/04/19 11:25 97.1 F 124 H 16 105/60 84 L Date Exam was Performed: 09/04/19 Time Exam was Performed: 15:42 - My Orders Last 24 Hours: My Active Orders 09/04/19 13:11 Potassium Chloride Riders [KCL 40 MEQ in Water 100 ML] 40 meq Premix Bag 1 bag IV ONETIME 09/04/19 13:30 Sodium Chloride 0.9% [Normal Saline] 1,000 ml IV ASDIRECTED 09/04/19 14:56 Magnesium Sulfate/Water [Magnesium Sulfate in Water Premix] 2 gm Premix Bag 1 bag IV ONETIME - Assessment/Plan Last 24 Hours: My Active Orders 09/04/19 13:11 Potassium Chloride Riders [KCL 40 MEQ in Water 100 ML] 40 meq Premix Bag 1 bag IV ONETIME 09/04/19 13:30 Sodium Chloride 0.9% [Normal Saline] 1,000 ml IV ASDIRECTED 09/04/19 14:56 Magnesium Sulfate/Water [Magnesium Sulfate in Water Premix] 2 gm Premix Bag 1 bag IV ONETIME
[2019-09-04 13:02] LABS: BLOOD UREA NITROGEN,BUN 21 mg/dL (7.0-18.0); CARBON DIOXIDE,CO2 31.8 mmol/L (21.0-32.0); CHLORIDE,CL 96 mmol/L (98-107); GLUCOSE RANDOM 107 mg/dL (74-106); SODIUM,NA 131 mmol/L (136-145)
[2019-09-04 13:04] LABS: POTASSIUM,K 2.4 mmol/L (3.5-5.1)
[2019-09-04] MEDS ORDERED: Potassium Chloride Riders 40 MEQ in Premix Bag 1 BAG IV ONE (13:11)
[2019-09-04] MEDS ORDERED: Sodium Chloride 0.9% 1,000 ML IV SCH (13:30)
[2019-09-04] MEDS ORDERED: Magnesium Sulfate/Water 2 GM in Premix Bag 1 BAG IV ONE (14:56)
[2019-09-04 17:05] VITALS: PULSE 112
[2019-09-04 19:07] VITALS: BP 104/67
== END 2019-09-04 19:35 ==
LOC: MW.ED 10:34
DX: E87.6 Hypokalemia (principal); E86.0 Dehydration; E83.42 Hypomagnesemia; J90 Pleural effusion, not elsewhere classified; F41.9 Anxiety disorder, unspecified; Z91.041 Radiographic dye allergy status; Z88.8 Allergy status to other drugs, medicaments and biological substances; Z91.09 Other allergy status, other than to drugs and biological substances; Z79.82 Long term (current) use of aspirin; Z79.01 Long term (current) use of anticoagulants; Z79.899 Other long term (current) drug therapy
CPT/HCPCS: 36415; 71045; 80053; 83735; 85025; 96361; 96365; 96366; 96368; 99285; J3475; J3480; J7030; 99284